=== PATIENT | male | born 1950 | race Caucasian/White ===

== ENCOUNTER 2017-02-01 22:47 | Emergency (ER) | payer BC, OTHER ==
[2017-02-02] MEDS ORDERED: IOPAMIDOL-300 100 ML VIAL IVP ONE (01:19)
[2017-02-02] MEDS ORDERED: MORPHINE 2 MG/ML SYRINGE IVP STA (05:08)
[2017-02-02] MEDS ORDERED: MORPHINE 2 MG/ML SYRINGE ONE ×2 (05:13)
== END 2017-02-02 05:50 | disposition short-term general hospital (02) ==
DX: C25.0 Malignant neoplasm of head of pancreas (principal); C78.6 Secondary malignant neoplasm of retroperitoneum and peritoneum; K83.1 Obstruction of bile duct; I49.1 Atrial premature depolarization; I48.91 Unspecified atrial fibrillation; Z79.899 Other long term (current) drug therapy; Z79.82 Long term (current) use of aspirin
CPT/HCPCS: 36415; 74177; 80053; 81003; 83690; 83880; 84484; 85025; 93005; 93010; 96374; 99284; Q9967

== ENCOUNTER 2017-02-09 14:54 | Outpatient (CLI) | payer OTHER | END 2017-02-09 14:55 | disposition home or self-care (01) | DX: C25.0 Malignant neoplasm of head of pancreas (principal) ==

== ENCOUNTER 2017-02-15 20:45 | Outpatient (CLI) | payer OTHER | END 2017-02-15 20:46 | disposition home or self-care (01) | DX: C25.0 Malignant neoplasm of head of pancreas (principal) ==

== ENCOUNTER 2017-03-02 11:50 | Outpatient (CLI) | payer OTHER | END 2017-03-02 11:51 | disposition home or self-care (01) | DX: C25.9 Malignant neoplasm of pancreas, unspecified (principal); L40.9 Psoriasis, unspecified ==

== ENCOUNTER 2017-03-06 06:19 | Observation (INO) | payer OTHER ==
[2017-03-06] MEDS ORDERED: CLINDAMYCIN 600 MG/50 ML 50 ML IV ONE (06:41)
[2017-03-06] MEDS ORDERED: LACTATED RINGERS 1,000 ML IV ONE ×3 (07:01→09:25)
[2017-03-06] MEDS ORDERED: PROPOFOL 200 MG/20 ML VIAL IVP ONE (07:45)
[2017-03-06] MEDS ORDERED: MIDAZOLAM 2 MG/2 ML VIAL IVP ONE (07:45)
[2017-03-06] MEDS ORDERED: ONDANSETRON 4 MG/2 ML VIAL IVP ONE (07:45)
[2017-03-06] MEDS ORDERED: DEXAMETHASONE 4 MG/ML VIAL IVP ONE (07:45)
[2017-03-06] MEDS ORDERED: LIDOCAINE-MPF 2% 5 ML VIAL IM ONE (07:45)
[2017-03-06] MEDS ORDERED: fentaNYL 100 MCG/2 ML VIAL IVP ONE (07:45)
[2017-03-06] MEDS ORDERED: ePHEDrine 50 MG/ML AMP IVP ONE (07:45)
[2017-03-06] MEDS ORDERED: LIDOCAINE MPF 1%-EPI 1:200000 30 ML VIAL SUBQ ONE ×3 (08:03)
[2017-03-06] MEDS ORDERED: BUPIVACAINE 0.5% PF 30 ML VIAL SUBQ ONE ×3 (08:03)
[2017-03-06] MEDS ORDERED: ONDANSETRON ODT 4 MG TABLET PO PRN (11:31)
[2017-03-06] MEDS ORDERED: SODIUM CHLORIDE FLUSH 0.9% 10 ML SYRINGE IVP PRN (11:32)
[2017-03-06] MEDS: SODIUM CHLORIDE FLUSH 0.9% 10 ML SYRINGE IVP SCH ×2 (12:15→22:12)
[2017-03-06] MEDS: FLECAINIDE 50 MG TABLET PO SCH ×2 (13:39→22:12)
[2017-03-06] MEDS: oxyCOD/ACETAMIN 5 MG/325 MG TABLET PO PRN (14:17)
[2017-03-07] MEDS: oxyCOD/ACETAMIN 5 MG/325 MG TABLET PO PRN (01:18)
[2017-03-07] MEDS: SODIUM CHLORIDE FLUSH 0.9% 10 ML SYRINGE IVP SCH (05:47)
[2017-03-07] MEDS: FLECAINIDE 50 MG TABLET PO SCH (05:47)
[2017-03-07] MEDS ORDERED: diltiaZEM CD 120 MG CAPSULE PO SCH (09:00)
== END 2017-03-07 10:44 | disposition home or self-care (01) ==
PROC: 02HV33Z Insertion of Infusion Device into Superior Vena Cava, Percutaneous Approach (ICD-10-PCS; principal; 2017-03-06 07:30)
DX: C25.0 Malignant neoplasm of head of pancreas (principal); J95.811 Postprocedural pneumothorax; Y83.8 Other surgical procedures as the cause of abnormal reaction of the patient, or of later complication, without mention of misadventure at the time of the procedure; Y92.234 Operating room of hospital as the place of occurrence of the external cause; I48.91 Unspecified atrial fibrillation; Z79.82 Long term (current) use of aspirin; K59.00 Constipation, unspecified
CPT/HCPCS: 36561; 71010; 71020; A9270; C1751; G0378; J7120

== ENCOUNTER 2017-04-09 12:43 | Emergency (ER) | payer OTHER ==
[2017-04-09 12:51] VITALS: BP 133/55
--- NOTE | 2017-04-09 13:03 | ED Physician Documentation ---
History of Present Illness - Stated complaint Stated Complaint: RT LE SWELLING - Chief complaint Chief Complaint: Ext Problem - History obtained from History obtained from: Patient - History of Present Illness Timing: Today Pain level max: 0 Pain level now: 0 Improved by: elevating legs Worsened by: [place] - Additonal information Additional information: Patient is a 66-year-old male with a history of metastatic pancreatic cancer who presents to the emergency department with swelling to the right lower extremity. No pain, no redness. No recent trauma. Concerned about potential DVT. Review of Systems Constitutional: denies: Fever Respiratory: denies: Dyspnea, Cough, Wheezing GI: denies: Abdominal Pain, Nausea, Vomiting Skin: denies: Rash Musculoskeletal: denies: Neck pain, Back pain Neurologic: denies: Headache PD PAST MEDICAL HISTORY - Past Medical History Past Medical History: Yes Cardiovascular: Atrial fibrillation Respiratory: None Endocrine/Autoimmune: None GI: None : None HEENT: None Psych: None Musculoskeletal: None Derm: None Other Past Medical History: pancreatic ca - Past Surgical History Past Surgical History: Yes General: Other Cardiovascular: Other HEENT: Tonsil/Adenoidectomy - Present Medications Home Medications: Ambulatory Orders Medication Instructions Recorded Confirmed Aspirin [Barbara Chewable Aspirin] 81 mg PO DAILY 12/31/15 03/24/17 diltiaZEM CD [Cardizem Cd] 120 mg PO DAILY 12/31/15 03/24/17 Ondansetron Odt [Zofran Odt] 4 mg PO Q4H PRN 02/25/17 03/24/17 Flecainide Acetate 100 mg PO TID 03/06/17 03/24/17 Polyethylene Glycol 3350 [Miralax] 17 gm PO DAILY PRN 03/06/17 03/24/17 Prochlorperazine Maleate 10 mg PO Q6H PRN 03/06/17 03/24/17 [Compazine] oxyCODONE [Roxicodone] 5 mg PO Q4H PRN 03/06/17 03/24/17 - Allergies Allergies/Adverse Reactions: Allergies Allergy/AdvReac Type Severity Reaction Status Date / Time No Known Drug Allergies Allergy Verified 12/31/15 16:26 - Social History Does the pt smoke?: No Smoking Status: Never smoker Does the pt drink ETOH?: Yes Does the pt have substance abuse?: No - Immunizations Immunizations are current?: Yes PD ED PE NORMAL - Vitals Vital signs reviewed: Yes - General General: Alert and oriented X 3, No acute distress, Well developed/nourished - Cardiac Cardiac: RRR - Respiratory Respiratory: No respiratory distress, Clear bilaterally - Derm Derm: Warm and dry, No rash - Extremities Extremities: Other (1+ B LE edema, no calf tenderness, negative Lisker and Ara 's signs. Normal skin color and temperature. ) - Neuro Neuro: Alert and oriented X 3 - Psych Psych: Normal mood, Normal affect Results - Vitals Vitals: Vital Signs - 24 hr 04/09/17 12:49 Temperature 36.3 C L Heart Rate 87 Respiratory 18 Rate Blood Pressure 133/55 H O2 Saturation 98 Oxygen O2 Source Room air PD MEDICAL DECISION MAKING - ED course Complexity details: considered differential, d/w patient ED course: Patient is a 66-year-old male who presents to the emergency department with what was thought to be right lower extremity swelling, but the bilateral lower extremities are actually even. Both are very mildly swollen. There is no calf tenderness bilaterally. Negative Ara and Lisker signs. Normal skin. No warmth. We did discuss a ultrasound to rule out any potential occult DVT, but given lack of symptoms on exam, will hold this at this time. He does usually wear compression stockings, but did not wear them yesterday when he walked several miles along the beach. Appears to be mostly dependent edema and is decreasing with elevation of the legs. Patient counseled regarding signs and symptoms for which I believe and urgent re-evaluation would be necessary. Patient with good understanding of and agreement to plan and is comfortable going home at this time This document was made in part using voice recognition software. While efforts are made to proofread this document, sound alike and grammatical errors may occur. Departure - Departure Disposition: 01 Home, Self Care Clinical Impression: Peripheral edema Condition: Good Instructions: ED Edema Legs Bilateral Follow-Up: Deanna Simon MD [Primary Care Provider] - As Needed Comments: Wearing your compression socks will help with the swelling. Return if you notice swelling to one leg, redness or pain.
== END 2017-04-09 13:07 | disposition home or self-care (01) ==
LOC: ED 12:43
DX: R60.0 Localized edema (principal); C25.9 Malignant neoplasm of pancreas, unspecified; C79.9 Secondary malignant neoplasm of unspecified site; I48.91 Unspecified atrial fibrillation; Z79.82 Long term (current) use of aspirin
CPT/HCPCS: 99282; 99283

== ENCOUNTER 2017-04-21 08:00 | Outpatient (CLI) | payer OTHER | END 2017-04-21 08:01 | disposition home or self-care (01) | LOC: LAB.R 08:00 | PROVIDERS: ATTEND Naturopath | DX: R70.0 Elevated erythrocyte sedimentation rate (principal) | CPT/HCPCS: 82525; 84630; 85651; 86140 ==

== ENCOUNTER 2017-06-04 08:00 | Outpatient (CLI) | payer OTHER ==
[2017-06-06 16:21] LABS: COPPER 135 mcg/dL (70-175)
== END 2017-06-04 08:01 ==
LOC: LAB.R 08:00
PROVIDERS: ATTEND Naturopath
DX: E55.9 Vitamin D deficiency, unspecified (principal); R70.0 Elevated erythrocyte sedimentation rate; R79.82 Elevated C-reactive protein (CRP); R79.0 Abnormal level of blood mineral
CPT/HCPCS: 82306; 82525; 84630; 85651; 86141

== ENCOUNTER 2017-07-07 17:06 | Outpatient (CLI) | payer OTHER | END 2017-07-07 17:07 | disposition home or self-care (01) | LOC: LAB.R 17:06 | PROVIDERS: ATTEND Naturopath | DX: E55.9 Vitamin D deficiency, unspecified (principal); R70.0 Elevated erythrocyte sedimentation rate; R79.82 Elevated C-reactive protein (CRP); R79.0 Abnormal level of blood mineral | CPT/HCPCS: 82306; 82525; 84630; 85651; 86141 ==

== ENCOUNTER 2017-09-07 20:07 | Outpatient (CLI) | payer MEDICARE, OTHER ==
--- NOTE | 2017-09-08 09:13 | Ultrasound Report ---
SCROTAL DUPLEX: 09/07/2017 CLINICAL INDICATION: Edema. COMPARISON: 09/05/2015 TECHNIQUE: Real-time sonographic vascular imaging was performed by the marketing reporting analyst through the scrot um utilizing both color-flow and Doppler spectral analysis. [employer] sales representative static images we re saved for review. FINDINGS: The right testicle measures 4.0 x 2.4 x 2.4 cm, and the left testicle measures 4.0 x 2.4 x 2.5 cm. Both testicles demonstrate normal flow and echotexture. Bilateral epididymal cysts are pre sent. Small bilateral hydroceles are present. Subcutaneous edema is present bilaterally. IMPRESSION: NEW SUBCUTANEOUS EDEMA. NORMAL TESTES. JOB #: [id number] EXT JOB #:[id number]
--- NOTE | 2017-09-08 09:36 | Ultrasound Report ---
COMPLETE ABDOMINAL ULTRASOUND: 09/07/2017 CLINICAL INDICATION: Bloating, edema. COMPARISON: CT 05/21/2017. TECHNIQUE: Real-time scanning was performed with sales representative girls' apparel static images obtained. FINDINGS: The liver measures 13.6 cm. No focal parenchymal lesion or intrahepatic biliary dilatatio n is seen. The common bile duct is difficult to visualize, likely due to biliary stent. The gallbla dder is not dilated. The pancreas and the majority of the biliary tree is obscured by bowel gas. Th e spleen is mildly increased in size, measuring 14.6 cm. No focal splenic lesion is appreciated. Th e right kidney measures 11.3 cm, and demonstrates a 1.3 cm cyst. The left kidney measures 11.6 cm. No hydronephrosis or solid renal lesion is seen. The abdominal aorta is normal in caliber. The infe rior vena cava is unremarkable. There has been slight increase in volume of ascites present, with a small amount of perihepatic and perisplenic ascites seen, and trace ascites in the pelvis. IMPRESSION: SMALL VOLUME OF ASCITES PRESENT, SLIGHTLY INCREASED FROM PREVIOUS CT. SUBOPTIMAL VISUAL IZATION OF THE PANCREAS AND COMMON BILE DUCT, DUE TO BOWEL GAS, BUT NO INTRAHEPATIC BILIARY DILATATIO N IS APPRECIATED. JOB #: [id number] EXT JOB #:[id number]
== END 2017-09-07 20:08 | disposition home or self-care (01) ==
LOC: DI 20:07
PROVIDERS: ATTEND Family Medicine
DX: N50.89 Other specified disorders of the male genital organs (principal); R14.0 Abdominal distension (gaseous); R18.8 Other ascites
CPT/HCPCS: 76700; 76870; 93975

== ENCOUNTER 2017-09-10 11:33 | Emergency (ER) | payer MEDICARE, OTHER ==
[2017-09-10] MEDS ORDERED: SODIUM CHLORIDE FLUSH 0.9% 10 ML SYRINGE IVP ONE ×3 (11:51→15:11)
[2017-09-10 12:28] LABS: BASOPHILS % (AUTO) 0.3 %; LYMPHOCYTES # (AUTO) 0.3 10^3/uL (1.5-3.5); LYMPHOCYTES % (AUTO) 3.2 %; MEAN CORPUSCULAR HEMOGLOBIN 28.7 pg (27.0-31.0); MEAN CORPUSCULAR HGB CONC 32.6 g/dL (32.0-36.0); MEAN CORPUSCULAR VOLUME 88.1 fL (80.0-94.0); MEAN PLATELET VOLUME 9.4 fL (7.4-11.4); MONOCYTES # (AUTO) 0.5 10^3/uL (0.0-1.0); MONOCYTES % (AUTO) 5.3 %; NEUTROPHILS # (AUTO) 9.3 10^3/uL (1.5-6.6); NEUTROPHILS % (AUTO) 91.2 %; RED BLOOD COUNT 1.82 10^6/uL (4.70-6.10); RED CELL DISTRIBUTION WIDTH 19.1 % (12.0-15.0); UNCORRECTED WHITE BLOOD COUNT 10.2 x10^3/uL; WHITE BLOOD COUNT 10.2 x10^3/uL (4.8-10.8)
[2017-09-10 12:32] LABS: HCT - HEMATOCRIT 16.1 % (42.0-52.0); HGB - HEMOGLOBIN 5.2 g/dL (14.0-18.0)
[2017-09-10 12:35] LABS: ALBUMIN/GLOBULIN RATIO 1.1 (1.0-2.2); BILIRUBIN,TOTAL 0.8 mg/dL (0.2-1.0); CALCIUM 8.4 mg/dL (8.5-10.3); CREATININE 0.8 mg/dL (0.6-1.2); MAGNESIUM 2.9 mg/dL (1.7-2.8); POTASSIUM 4.5 mmol/L (3.5-5.0); TOTAL PROTEIN 4.8 g/dL (6.7-8.2)
--- NOTE | 2017-09-10 12:40 | ED Physician Documentation ---
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 He has had issues with severe anemia and actually got 5 units of transfusion last week. He also has a biliary stent in place. He is here today with sudden onset dyspnea that started within the last couple of hours, he has had an increased cough but no fevers. There is some chest pressure that is present with exertion, but not at rest. He has anasarca which has been ongoing for the last week or so. He has a history of atrial fibrillation and is maintained on flecainide and diltiazem, he is not anticoagulated. He has no asymmetric pedal edema, but he certainly does have pedal edema but without calf pain. No history of DVT or PE.) Review of Systems Ten Systems: 10 systems reviewed and negative Constitutional: reports: Fatigue (Mild). denies: Fever, Chills Nose: reports: Rhinorrhea / runny nose. denies: Congestion Cardiac: reports: Chest pain / pressure, Pedal edema. denies: Palpitations, Calf pain Respiratory: reports: Dyspnea, Cough GI: reports: Abdominal Swelling (Not increased over the last week). denies: Abdominal Pain, Nausea, Vomiting, Constipation, Diarrhea Skin: denies: Rash, Lesions Musculoskeletal: denies: Neck pain, Back pain PD PAST MEDICAL HISTORY - Past Medical History Past Medical History: Yes Cardiovascular: Atrial fibrillation Respiratory: None Endocrine/Autoimmune: None GI: None : None HEENT: None Psych: None Musculoskeletal: None Derm: None Other Past Medical History: pancreatic CA diagnosed January of 2017 - Past Surgical History Past Surgical History: Yes General: Other Cardiovascular: Other HEENT: Tonsil/Adenoidectomy - Present Medications Home Medications: Ambulatory Orders Medication Instructions Recorded Confirmed Aspirin [Barbara Chewable Aspirin] 81 mg PO DAILY 12/31/15 09/08/17 diltiaZEM CD [Cardizem Cd] 120 mg PO DAILY 12/31/15 09/08/17 Ondansetron Odt [Zofran Odt] 4 mg PO Q4H PRN 02/25/17 09/08/17 Flecainide Acetate 100 mg PO TID 03/06/17 09/08/17 Polyethylene Glycol 3350 [Miralax] 17 gm PO DAILY PRN 03/06/17 09/08/17 Prochlorperazine Maleate 10 mg PO Q6H PRN 03/06/17 09/08/17 [Compazine] oxyCODONE [Roxicodone] 5 mg PO Q4H PRN 03/06/17 09/08/17 Gabapentin [Neurontin] 1 tab ORAL QPM 06/09/17 09/08/17 Loratadine [Claritin] 10 mg PO DAILY 07/07/17 09/08/17 Amoxicillin/Potassium Clav 1 tab PO BID 08/18/17 09/08/17 [Amox-Clav 875-125 mg Tablet] Rivaroxaban [Xarelto] 15 mg PO PRN PRN 08/18/17 09/08/17 - Allergies Allergies/Adverse Reactions: Allergies Allergy/AdvReac Type Severity Reaction Status Date / Time No Known Drug Allergies Allergy Verified 12/31/15 16:26 - Social History Does the pt smoke?: No Smoking Status: Never smoker Does the pt drink ETOH?: Yes Does the pt have substance abuse?: No - Family History Family history: reports: Non contributory - Immunizations Immunizations are current?: Yes PD ED PE NORMAL - Vitals Vital signs reviewed: Yes - General General: Alert and oriented X 3, Other (Pale, winded when he gets talking.) - HEENT HEENT: PERRL, EOMI - Neck Neck: Supple, no meningeal sign, No bony TTP - Cardiac Cardiac: RRR, No murmur - Respiratory Respiratory: No respiratory distress, Clear bilaterally - Abdomen Abdomen: Other (Distended with ascites, not tense, but close. Nontender.) - Rectal Rectal: Other (Not much stool in the vault, what is there is dark but not obviously melanic, but very guaiac positive.) - Back Back: No CVA TTP, No spinal TTP - Derm Derm: Normal color, Warm and dry - Extremities Extremities: Other (He has anasarca of the legs and a little bit to the arms as well.) - Neuro Neuro: Alert and oriented X 3, Normal speech - Psych Psych: Normal mood, Normal affect Results - Vitals Vitals: Vital Signs - 24 hr 09/10/17 09/10/17 09/10/17 11:36 12:20 13:50 Temperature 35.0 C L 36.8 C Heart Rate 85 76 81 Respiratory 26 H 18 20 Rate Blood Pressure 99/63 115/77 126/72 O2 Saturation 100 100 100 09/10/17 09/10/17 14:33 15:33 Temperature Heart Rate 75 75 Respiratory 18 18 Rate Blood Pressure 131/64 H 136/72 H O2 Saturation 99 100 Oxygen O2 Source Nasal cannula - EKG (time done) 1144 Rate: Rate (enter#) (80) Rhythm: NSR [place]: Normal Intervals: Wide QRS (IVCD) Ischemia: Non specific changes (Kind of flat T waves throughout without ST elevation or depression.) Computer interpretation: Agree with computer - Labs Labs: Laboratory Tests 09/10/17 09/10/17 09/10/17 11:50 11:50 11:50 WBC 10.2 RBC 1.82 L Hgb 5.2 L* Hct 16.1 L* MCV 88.1 MCH 28.7 MCHC 32.6 RDW 19.1 H Plt Count 112 L MPV 9.4 Neut # 9.3 H Lymph # 0.3 L [place] # 0.5 Eos # 0.0 Baso # 0.0 Absolute Nucleated RBC 0.01 Nucleated RBC % 0.0 Sodium 134 L Potassium 4.5 Chloride 103 Carbon Dioxide 23 Anion Gap 8.0 BUN 43 H Creatinine 0.8 Estimated GFR (MDRD) 96 Glucose 167 H Calcium 8.4 L Magnesium 2.9 H Total Bilirubin 0.8 AST 48 H ALT 16 Alkaline Phosphatase 100 Troponin I < 0.04 B-Natriuretic Peptide Total Protein 4.8 L Albumin 2.5 L Globulin 2.3 Albumin/Globulin Ratio 1.1 Lipase 23 Blood Type Antibody Screen Crossmatch IS Only 09/10/17 09/10/17 11:50 11:50 WBC RBC Hgb Hct MCV MCH MCHC RDW Plt Count MPV Neut # Lymph # [place] # Eos # Baso # Absolute Nucleated RBC Nucleated RBC % Sodium Potassium Chloride Carbon Dioxide Anion Gap BUN Creatinine Estimated GFR (MDRD) Glucose Calcium Magnesium Total Bilirubin AST ALT Alkaline Phosphatase Troponin I B-Natriuretic Peptide 135 H Total Protein Albumin Globulin Albumin/Globulin Ratio Lipase Blood Type A POSITIVE Antibody Screen NEGATIVE Crossmatch IS Only See Detail - Rads (name of study) CTA Chest and CT A/P Radiology: EMP read contemporaneously (61-year-old gentleman with hypotension and pneumonia, administered Rocephin and Zithromax after blood cultures. Spoke with Dr. Lu for admission at 2:05 PM.) PD MEDICAL DECISION MAKING - ED course ED course: This is a 66-year-old gentleman with stage IV pancreatic cancer undergoing treatment with acute dyspnea and issues with anemia lately, his H&H have been dropping faster than expected given recent transfusions, totaling 5 units last week. He is again profoundly anemic. He is guaiac positive and admits to dark stools intermittently recently. CT of the abdomen and pelvis was notable for varices. Case was discussed at that point with Dr. Patel, the on-call surgeon who felt that if this was going to be treated he would need to be transferred to a tertiary facility given the varices as he will need GI consultation. He was administered initially 1 bolus of Protonix, 40 mg, this was repeated on identification of the varices and he was also started on an octreotide drip after a 50 mcg bolus. He was administered Rocephin 1 g IV for GI bleeding. Blood was readied, his central line was accessed and We also obtained peripheral access. I discussed the diagnosis of abdominal varices with GI bleeding with the patient and his . We did discuss the potential of hospice which he is not ready for. [facility] was called for potential transfer is that were is where he has had his prior GI work done at approximately 2:[address] Ley GI at [facility] at 1540. Agrees to see in consultation, defers to the hospitalist there for admit, the transfer center will call me back with the hospitalist on the line. Accepted by Dr. Rodriguez to [facility] at 4 PM. - Critical Care Time(min): 45 Time Includes: Direct patient care, Review records, Reassess patient, Document care, Coordinate care, Medical consult, Family consult for tx dec Data interpretation: Labs Procedures included in critical care time: Peripheral IV Departure - Departure Disposition: 02 Transfer Acute Care Hosp Clinical Impression: Peripheral edema, Intra-abdominal varices Pancreatic cancer Qualifiers: Pancreatic malignancy location: unspecified Qualified Code(s): C25.9 - Malignant neoplasm of pancreas, unspecified Anemia Qualifiers: Anemia type: iron deficiency Iron deficiency anemia type: chronic blood loss Qualified Code(s): D50.0 - Iron deficiency anemia secondary to blood loss ( chronic) Gastrointestinal hemorrhage Qualifiers: GI bleed type/associated pathology: unspecified gastrointestinal hemorrhage type Qualified Code(s): K92.2 - Gastrointestinal hemorrhage, unspecified Dyspnea Qualifiers: Dyspnea type: dyspnea on exertion Qualified Code(s): R06.09 - Other forms of dyspnea Condition: Serious
[2017-09-10] MEDS ORDERED: IOPAMIDOL-300 100 ML VIAL ONE (12:44)
[2017-09-10] MEDS ORDERED: IOPAMIDOL-300 100 ML VIAL IVP ONE (13:00)
--- NOTE | 2017-09-10 13:27 | CT Preliminary Report ---
Exam: CT ABDOMEN/PELVIS W/ IMPRESSION: 1. Moderate volume of ascites fluid. 2. Pancreatic head mass with portal confluence obstruction and multiple abdominal varices. 3. Proximal small bowel dilation favoring a pattern of ileus over obstruction. [facility] SITE ID: [id number]
[2017-09-10] MEDS ORDERED: PANTOPRAZOLE 40 MG VIAL IVP STA ×2 (13:28→14:00)
--- NOTE | 2017-09-10 13:29 | CT Report ---
EXAM: CT ABDOMEN AND PELVIS EXAM DATE: 09/10/2017 01:04 PM. CLINICAL HISTORY: IV only, increasing ascites. COMPARISONS: Noncontrast abdomen CT 02/03/2017. TECHNIQUE: Routine helical CT imaging was performed through the abdomen and pelvis. IV contrast: 100 cc Isovue-300 IV. Enteric contrast: No. Reconstructions: Coronal and sagittal. In accordance with CT protocol optimization, one or more of the following dose reduction techniques w ere utilized for this exam: automated exposure control, adjustment of mA and/or KV based on patient s ize, or use of iterative reconstructive technique. FINDINGS: Lung Bases: There is a trace left pleural effusion. Liver: There is pneumobilia within the liver. No focal liver masses visualized. The central portal ve ins are patent. Gallbladder/Bile Ducts: The gallbladder is contracted. Spleen: Normal. Pancreas: There is a heterogeneous soft tissue mass in the location of the body and head of the pancr eas. This mass makes broad contact with the superior mesenteric artery. This mass appears to obstruct or compress the extrahepatic portal vein and portal confluence. There are multiple surrounding vesse ls around this mass. The margins of the mass are poorly defined and measure approximately 7.3 x 4.4 x 6.5 cm. There is a biliary stent traversing through the level of the pancreas. Adrenal Glands: Normal in size. Kidneys: No hydronephrosis bilaterally. Peritoneal Cavity/Bowel: There is a moderate volume of ascites fluid within the upper and lower abdom en. There are edematous appearing loops of proximal jejunum in the upper abdomen. Small bowel loops a re dilated up to 4 cm in diameter without a well-defined transition zone. The appendix appears within normal limits. There is diffuse mesenteric fat edema. There are multiple abdominal varices. Pelvic Organs: Urinary bladder is unremarkable. Previous pelvic surgery noted. Vasculature: The abdominal aorta is normal in caliber. Bones: No significant abnormality. Other: None. IMPRESSION: 1. Moderate volume of ascites fluid. 2. Pancreatic head mass with portal confluence obstruction and multiple abdominal varices. 3. Proximal small bowel dilation favoring a pattern of ileus over obstruction. [facility] Referring Provider Line: [phone] SITE ID: [id number]
--- NOTE | 2017-09-10 13:32 | CT Preliminary Report ---
Exam: CT CHEST ANGIO (PE) IMPRESSION: 1. Negative for acute pulmonary embolism. 2. Trace left pleural effusion. 3. Basilar dependent atelectasis. [facility] SITE ID: [id number]
--- NOTE | 2017-09-10 13:35 | CT Report ---
EXAM: CT ANGIOGRAM CHEST EXAM DATE: 09/10/2017 01:04 PM. CLINICAL HISTORY: Dyspnea, pancreatic CA. COMPARISON: 05/21/2017. TECHNIQUE: Routine helical imaging was performed through the chest in the pulmonary arterial phase. I V Contrast: 100 cc Isovue-300 IV. Reconstructions: Coronal 3-D MIP reconstructions.Sagittal and coron al. In accordance with CT protocol optimization, one or more of the following dose reduction techniques w ere utilized for this exam: automated exposure control, adjustment of mA and/or KV based on patient s ize, or use of iterative reconstructive technique. FINDINGS: Pulmonary Arteries: Diagnostic quality: Adequate through the segmental arteries. Negative for acute pulmonary embolism. Main pulmonary artery is normal in size. Lungs/Pleura: There is a calcified granuloma in the superior segment of the right lower lobe. There i s a linear band of atelectasis in the lateral right lower lobe. No consolidative pneumonia. No centra l endobronchial obstructing lesion. There is a trace left pleural effusion. Mediastinum: There is a small hiatal hernia. The heart size is normal. No intracardiac thrombus. Ther e is a central line with tip in the superior vena cava. No mediastinal or hilar lymphadenopathy. Thoracic Aorta: No thoracic aortic aneurysm or dissection. Upper Abdomen: There is a moderate volume of ascites in the upper abdomen. There is a pancreatic head mass. Other: None. IMPRESSION: 1. Negative for acute pulmonary embolism. 2. Trace left pleural effusion. 3. Basilar dependent atelectasis. [facility] Referring Provider Line: [phone] SITE ID: [id number]
[2017-09-10] MEDS ORDERED: PANTOPRAZOLE 40 MG VIAL ONE ×2 (13:44→14:53)
[2017-09-10] MEDS ORDERED: PANTOPRAZOLE 80 MG in SODIUM CHLORIDE 0.9% 100ML 100 ML IV STA (14:00)
[2017-09-10] MEDS ORDERED: OCTREOTIDE 100 MCG/ML VIAL IV STA (14:00)
[2017-09-10] MEDS ORDERED: OCTREOTIDE 500 MCG in SODIUM CHLORIDE 0.9% 100ML 95 ML IV STA (14:00)
[2017-09-10] MEDS ORDERED: FLECAINIDE 50 MG TABLET PO STA (14:53)
[2017-09-10] MEDS ORDERED: FLECAINIDE 50 MG TABLET PO ONE (15:33)
[2017-09-10 20:11] VITALS: BP 124/72
== END 2017-09-10 20:08 | disposition short-term general hospital (02) ==
LOC: ED 11:33
DX: C25.0 Malignant neoplasm of head of pancreas (principal); C78.6 Secondary malignant neoplasm of retroperitoneum and peritoneum; D50.0 Iron deficiency anemia secondary to blood loss (chronic); K92.2 Gastrointestinal hemorrhage, unspecified; I86.8 Varicose veins of other specified sites; R18.8 Other ascites; R60.0 Localized edema; R06.09 Other forms of dyspnea; I48.91 Unspecified atrial fibrillation; Z79.82 Long term (current) use of aspirin
CPT/HCPCS: 36415; 36430; 71275; 74177; 80053; 83690; 83735; 83880; 84484; 85025; 86850; 86900; 86901; 86920; 93005; 93306; 96365; 96368; 96375; 96376; 99285; 99291; A9270; J2354; P9016; Q9967

== ENCOUNTER 2017-09-10 20:10 | Outpatient (CLI) | payer MEDICARE, OTHER | END 2017-09-10 20:11 | disposition short-term general hospital (02) | LOC: EMS 20:10 | PROVIDERS: ATTEND Surgery | DX: K92.2 Gastrointestinal hemorrhage, unspecified (principal) | CPT/HCPCS: A0425; A0426 ==

== ENCOUNTER 2017-09-15 14:30 | Outpatient (CLI) | payer MEDICARE, OTHER | END 2017-09-15 14:31 | disposition home or self-care (01) | LOC: LAB.R 14:30 | PROVIDERS: ATTEND Naturopath | DX: E55.9 Vitamin D deficiency, unspecified (principal); R70.0 Elevated erythrocyte sedimentation rate; R79.82 Elevated C-reactive protein (CRP); R79.0 Abnormal level of blood mineral | CPT/HCPCS: 82306; 82525; 84630; 85651; 86140 ==

== ENCOUNTER 2017-09-21 11:10 | Outpatient (CLI) | payer MEDICARE, OTHER | END 2017-09-21 11:11 | LOC: LAB.R 11:10 | PROVIDERS: ATTEND Naturopath | DX: E55.9 Vitamin D deficiency, unspecified (principal); R79.0 Abnormal level of blood mineral; R70.0 Elevated erythrocyte sedimentation rate; R79.82 Elevated C-reactive protein (CRP) | CPT/HCPCS: 82525; 84630 ==

== ENCOUNTER 2017-12-22 13:12 | Outpatient (CLI) | payer MEDICARE, OTHER | END 2017-12-22 13:13 | LOC: LAB.R 13:12 | PROVIDERS: ATTEND Naturopath | DX: E55.9 Vitamin D deficiency, unspecified (principal); R70.0 Elevated erythrocyte sedimentation rate; R79.82 Elevated C-reactive protein (CRP); R79.0 Abnormal level of blood mineral | CPT/HCPCS: 82306; 82525; 84630; 85651; 86141 ==

== ENCOUNTER 2018-01-17 11:33 | Emergency (ER) | payer MEDICARE, OTHER ==
[2018-01-17] MEDS ORDERED: SODIUM CHLORIDE 0.9% 1,000 ML IV ONE (12:03)
[2018-01-17] MEDS ORDERED: PANTOPRAZOLE 40 MG VIAL IVP STA (12:03)
[2018-01-17] MEDS ORDERED: cefTRIAXone 1 GM VIAL IVP STA (12:04)
[2018-01-17 12:16] LABS: INR 1.2 (0.8-1.2); PT - PROTHROMBIN TIME 13.4 secs (9.9-12.6)
[2018-01-17 12:18] LABS: ALBUMIN 2.6 g/dL (3.2-5.5); ALBUMIN/GLOBULIN RATIO 0.9 (1.0-2.2); BILIRUBIN,TOTAL 0.9 mg/dL (0.2-1.0); CALCIUM 8.7 mg/dL (8.5-10.3); CREATININE 0.7 mg/dL (0.6-1.2); TOTAL PROTEIN 5.4 g/dL (6.7-8.2)
[2018-01-17 12:21] LABS: EOSINOPHILS % (AUTO) 0.1 %; LYMPHOCYTES % (AUTO) 1.3 %; MEAN CORPUSCULAR HEMOGLOBIN 31.3 pg (27.0-31.0); MEAN CORPUSCULAR HGB CONC 32.6 g/dL (32.0-36.0); MEAN CORPUSCULAR VOLUME 96.1 fL (80.0-94.0); MEAN PLATELET VOLUME 8.8 fL (7.4-11.4); NEUTROPHILS % (AUTO) 97.6 %; PLT - PLATELET COUNT 124 10^3/uL (130-450); RED BLOOD COUNT 2.15 10^6/uL (4.70-6.10); RED CELL DISTRIBUTION WIDTH 20.8 % (12.0-15.0)
[2018-01-17 12:27] LABS: WHITE BLOOD COUNT 52.4 x10^3/uL (4.8-10.8)
[2018-01-17 12:28] LABS: ABNORMAL LYMPHS % (MANUAL) 0 %; HGB - HEMOGLOBIN 6.7 g/dL (14.0-18.0)
[2018-01-17 12:40] LABS: BAND NEUTROPHILS % (MANUAL) 26 %; EOSINOPHILS # (MANUAL) 0.5 10^3/uL (0-0.7); LYMPHOCYTES % (MANUAL) 2 %; METAMYELOCYTES % (MANUAL) 1 %; MONOCYTES # (MANUAL) 0.5 10^3/uL (0.0-1.0); MYELOCYTES % (MANUAL) 1 %; NEUTROPHILS # (MANUAL) 49.3 10^3/uL (1.5-6.6); NEUTROPHILS % (MANUAL) 68 %
[2018-01-17 12:42] LABS: DIFFERENTIAL COMMENT MANUAL DIFFERENTIAL; PLATELET ESTIMATE, MANUAL DECREASED (<130,000) (NORMAL); PLATELET MORPHOLOGY NORMAL APPEARANCE (NORMAL)
--- NOTE | 2018-01-17 12:45 | ED Physician Documentation ---
History of Present Illness - Stated complaint Stated Complaint: BLACK STOOL - Chief complaint Chief Complaint: General - History obtained from History obtained from: Patient, Family - History of Present Illness Timing: How many days ago (2) Pain level max: 0 Pain level now: 0 Improved by: nothing Worsened by: nothing - Additonal information Additional information: Patient is a 67-year-old gentleman who has a history of metastatic pancreatic cancer, esophageal and gastric varices as well as gastric ulcers. He started having dark tarry stools on Thursday, have continued throughout the weekend. Came here for evaluation today as he is feeling weak. He sees GI and oncology at [facility] in [place]. He recently received a Neulasta shot as well. Denies any fevers. Review of Systems Ten Systems: 10 systems reviewed and negative Constitutional: denies: Fever, Chills Ears: denies: Ear pain Nose: denies: Rhinorrhea / runny nose, Congestion Throat: denies: Sore throat Cardiac: denies: Chest pain / pressure Respiratory: denies: Cough, Wheezing GI: reports: Bloody / black stool. denies: Abdominal Pain, Nausea, Vomiting, Diarrhea : denies: Dysuria Skin: denies: Rash Musculoskeletal: denies: Neck pain, Back pain Neurologic: denies: Headache PD PAST MEDICAL HISTORY - Past Medical History Cardiovascular: Atrial fibrillation Respiratory: None Endocrine/Autoimmune: None GI: None : None HEENT: None Psych: None Musculoskeletal: None Derm: None - Past Surgical History Past Surgical History: Yes General: Other Cardiovascular: Other HEENT: Tonsil/Adenoidectomy - Present Medications Home Medications: Ambulatory Orders Medication Instructions Recorded Confirmed diltiaZEM CD [Cardizem Cd] 120 mg PO DAILY 12/31/15 01/17/18 Ondansetron Odt [Zofran Odt] 4 mg PO Q4H PRN 02/25/17 01/17/18 Flecainide Acetate 100 mg PO TID 03/06/17 01/17/18 Polyethylene Glycol 3350 [Miralax] 17 gm PO DAILY PRN 03/06/17 01/17/18 Prochlorperazine Maleate 10 mg PO Q6H PRN 03/06/17 01/17/18 [Compazine] oxyCODONE [Roxicodone] 5 mg PO Q4H PRN 03/06/17 01/17/18 Gabapentin [Neurontin] 1 tab ORAL QPM 06/09/17 01/17/18 Loratadine [Claritin] 10 mg PO DAILY 07/07/17 01/17/18 Bisacodyl [Dulcolax] 10 mg PO DAILY 09/15/17 01/17/18 Omeprazole 40 mg PO BID 09/15/17 01/17/18 Sucralfate [Carafate] 100 mg PO Q8H 09/15/17 01/17/18 raNITIdine [Zantac] 150 mg PO DAILY 09/15/17 01/17/18 - Allergies Allergies/Adverse Reactions: Allergies Allergy/AdvReac Type Severity Reaction Status Date / Time No Known Drug Allergies Allergy Verified 12/31/15 16:26 - Social History Does the pt smoke?: No Smoking Status: Never smoker Does the pt drink ETOH?: Yes Does the pt have substance abuse?: No - Immunizations Immunizations are current?: Yes PD ED PE NORMAL - Vitals Vital signs reviewed: Yes - General General: Alert and oriented X 3, No acute distress - HEENT HEENT: PERRL, Moist mucous membranes - Neck Neck: Supple, no meningeal sign - Cardiac Cardiac: RRR - Respiratory Respiratory: No respiratory distress, Clear bilaterally - Abdomen Abdomen: Soft, Non tender, Non distended - Derm Derm: Warm and dry - Neuro Neuro: Alert and oriented X 3 Results - Vitals Vitals: Vital Signs - 24 hr 01/17/18 11:36 Temperature 36.5 C Heart Rate 74 Respiratory 14 Rate Blood Pressure 133/67 H O2 Saturation 99 Oxygen O2 Source Room air - Labs Labs: Laboratory Tests 01/17/18 01/17/18 01/17/18 11:55 11:55 11:55 WBC 52.4 H* RBC 2.15 L Hgb 6.7 L* Hct 20.6 L MCV 96.1 H MCH 31.3 H MCHC 32.6 RDW 20.8 H Plt Count 124 L MPV 8.8 Neut # Not Reportable Lymph # Not Reportable [place] # Not Reportable Eos # Not Reportable Baso # Not Reportable Absolute Nucleated RBC Not Reportable Total Counted 100 Band Neuts % (Manual) 26 H Abnorm Lymph % (Manual) 0 Metamyelocytes % 1 H Myelocytes % 1 H Nucleated RBC % Not Reportable Neutrophils # (Manual) 49.3 H Lymphocytes # (Manual) 1.0 L Monocytes # (Manual) 0.5 Eosinophils # (Manual) 0.5 Basophils # (Manual) 0.0 Differential Comment MANUAL DIFFERENTIAL Platelet Estimate DECREASED (<130,000) Platelet Morphology NORMAL APPEARANCE RBC Morph Micro Appear 3+ HYPOCHROMASIA PT 13.4 H INR 1.2 APTT 34.3 H Sodium 133 L Potassium 3.9 Chloride 104 Carbon Dioxide 24 Anion Gap 5.0 L BUN 33 H Creatinine 0.7 Estimated GFR (MDRD) 112 Glucose 102 H Calcium 8.7 Total Bilirubin 0.9 AST 28 ALT 12 Alkaline Phosphatase 175 H Total Protein 5.4 L Albumin 2.6 L Globulin 2.8 Albumin/Globulin Ratio 0.9 L Lipase 12 L PD MEDICAL DECISION MAKING - ED course Complexity details: reviewed old records, reviewed results, re-evaluated patient , considered differential, d/w patient, d/w family, d/w provider contracting consultant (1300 - Dr. Macario ([facility]) graciously accepts in transfer. ) ED course: Patient is a 67-year-old gentleman with a history of metastatic pancreatic cancer. Has GI bleeding, likely variceal. Given Protonix. Given Rocephin. Blood transfusion started. Hemoglobin is dropped from 10-6. Also given IV fluids. Has a port in place and this was accessed. 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 Has GI (Felicity) and oncology (Teofilo) specialists already at [facility] in [place], therefore I contacted their ICU doctor, Dr. Macario, who graciously accepts in transfer. Patient transferred to [facility] in [place]. This document was made in part using voice recognition software. While efforts are made to proofread this document, sound alike and grammatical errors may occur. Departure - Departure Disposition: 02 Transfer Acute Care Hosp Clinical Impression: Intra-abdominal varices Gastrointestinal hemorrhage Qualifiers: GI bleed type/associated pathology: unspecified gastrointestinal hemorrhage type Qualified Code(s): K92.2 - Gastrointestinal hemorrhage, unspecified Pancreatic cancer Qualifiers: Pancreatic malignancy location: unspecified Qualified Code(s): C25.9 - Malignant neoplasm of pancreas, unspecified Anemia Qualifiers: Anemia type: unspecified type Qualified Code(s): D64.9 - Anemia, unspecified Leukocytosis Qualifiers: Leukocytosis type: unspecified Qualified Code(s): D72.829 - Elevated white blood cell count, unspecified Condition: Stable
[2018-01-17 13:30] VITALS: BP 127/71
== END 2018-01-17 15:07 | disposition short-term general hospital (02) ==
LOC: ED 11:33
DX: K92.2 Gastrointestinal hemorrhage, unspecified (principal); C78.89 Secondary malignant neoplasm of other digestive organs; D64.9 Anemia, unspecified; I85.00 Esophageal varices without bleeding; D72.829 Elevated white blood cell count, unspecified; I86.4 Gastric varices; Z87.11 Personal history of peptic ulcer disease; I48.91 Unspecified atrial fibrillation
CPT/HCPCS: 36430; 80053; 83690; 85025; 85610; 85730; 86850; 86900; 86901; 86920; 96361; 96374; 99284; 99285; P9016

== ENCOUNTER 2018-01-17 14:07 | Outpatient (CLI) | payer MEDICARE, OTHER | END 2018-01-17 14:08 | disposition short-term general hospital (02) | LOC: EMS 14:07 | PROVIDERS: ATTEND Surgery | DX: K92.2 Gastrointestinal hemorrhage, unspecified (principal) | CPT/HCPCS: A0170; A0425; A0427 ==

== ENCOUNTER 2018-04-21 17:02 | Outpatient (CLI) | payer MEDICARE, OTHER ==
[2018-04-26 21:42] LABS: COPPER 102 mcg/dL (70-175)
[2018-04-27 20:38] LABS: ZINC, PLASMA 66 mcg/dL (60-130)
== END 2018-04-21 17:03 | disposition home or self-care (01) ==
LOC: LAB 17:02
PROVIDERS: ATTEND Naturopath
DX: E55.9 Vitamin D deficiency, unspecified (principal); R70.0 Elevated erythrocyte sedimentation rate; R79.82 Elevated C-reactive protein (CRP); R79.0 Abnormal level of blood mineral
CPT/HCPCS: 36415; 82306; 82525; 84630; 85651; 86141

== ENCOUNTER 2018-05-31 21:10 | Outpatient (CLI) | payer MEDICARE, OTHER ==
[2018-05-31 21:55] LABS: CRP HIGH SENSITIVITY 3.6 mg/L
[2018-06-03 23:21] LABS: ZINC, PLASMA 68 mcg/dL (60-130)
[2018-06-07 11:12] LABS: COPPER 128 mcg/dL (70-175)
== END 2018-05-31 21:11 | disposition home or self-care (01) ==
LOC: LAB 21:10
PROVIDERS: ATTEND Naturopath
DX: R70.0 Elevated erythrocyte sedimentation rate (principal); R79.82 Elevated C-reactive protein (CRP); D64.81 Anemia due to antineoplastic chemotherapy; R79.0 Abnormal level of blood mineral
CPT/HCPCS: 36415; 82306; 82525; 82728; 83540; 84466; 84630; 85651; 86141

== ENCOUNTER → 2018-07-07 | Outpatient (CLI) | payer MEDICARE, OTHER ==
[2018-07-13 11:56] LABS: COPPER 160 mcg/dL (70-175)
[2018-07-13 22:46] LABS: ZINC, PLASMA 53 mcg/dL (60-130)
== END ==
LOC: LAB.R 08:00
PROVIDERS: ATTEND Naturopath
DX: R79.0 Abnormal level of blood mineral (principal); R70.0 Elevated erythrocyte sedimentation rate; R97.20 Elevated prostate specific antigen [PSA]; I10 Essential (primary) hypertension; E78.5 Hyperlipidemia, unspecified
CPT/HCPCS: 82525; 84630; 85651

== ENCOUNTER 2018-07-26 09:03 | Outpatient (CLI) | payer MEDICARE, OTHER ==
[2018-07-26 09:33] LABS: BASOPHILS % (AUTO) 0.4 %; EOSINOPHILS # (AUTO) 0.1 10^3/uL (0.0-0.7); EOSINOPHILS % (AUTO) 1.2 %; HGB - HEMOGLOBIN 10.1 g/dL (14.0-18.0); LYMPHOCYTES # (AUTO) 0.5 10^3/uL (1.5-3.5); LYMPHOCYTES % (AUTO) 6.8 %; MEAN CORPUSCULAR HGB CONC 32.8 g/dL (32.0-36.0); MEAN CORPUSCULAR VOLUME 88.4 fL (80.0-94.0); MEAN PLATELET VOLUME 8.9 fL (7.4-11.4); NEUTROPHILS # (AUTO) 5.3 10^3/uL (1.5-6.6); NEUTROPHILS % (AUTO) 77.6 %; PLT - PLATELET COUNT 147 10^3/uL (130-450); RED BLOOD COUNT 3.49 10^6/uL (4.70-6.10); RED CELL DISTRIBUTION WIDTH 20.1 % (12.0-15.0); WHITE BLOOD COUNT 6.8 x10^3/uL (4.8-10.8)
== END 2018-07-26 09:04 | disposition home or self-care (01) ==
LOC: LAB 09:03
PROVIDERS: ATTEND Internal Medicine Hematology & Oncology
DX: C25.9 Malignant neoplasm of pancreas, unspecified (principal)
CPT/HCPCS: 36415; 85025

== ENCOUNTER 2018-08-12 17:22 | Emergency (ER) | payer MEDICARE, OTHER ==
--- NOTE | 2018-08-12 19:20 | ED Physician Documentation ---
History of Present Illness - Stated complaint Stated Complaint: BLOATING/CONSTIPATION - Chief complaint Chief Complaint: General - History obtained from History obtained from: Patient - History of Present Illness Timing: Other (Last good bowel movement was 4 days ago. He has had increasing lower abdominal pressure and back pressure for a couple of days despite trying magnesium citrate and a glycerin suppository. No vomiting or fevers.) Review of Systems Constitutional: denies: Fever, Chills GI: reports: Constipation. denies: Vomiting, Diarrhea, Hematemesis, Bloody / black stool PD PAST MEDICAL HISTORY - Past Medical History Cardiovascular: Atrial fibrillation Respiratory: None Endocrine/Autoimmune: None GI: None : None HEENT: None Psych: None Musculoskeletal: None Derm: None - Past Surgical History Past Surgical History: Yes General: Other Cardiovascular: Other HEENT: Tonsil/Adenoidectomy - Present Medications Home Medications: Ambulatory Orders Medication Instructions Recorded Confirmed diltiaZEM CD [Cardizem Cd] 120 mg PO DAILY 12/31/15 07/20/18 Flecainide Acetate 100 mg PO TID 03/06/17 07/20/18 Prochlorperazine Maleate 10 mg PO Q6H PRN 03/06/17 07/20/18 [Compazine] Gabapentin [Neurontin] 1 tab ORAL QPM 06/09/17 07/20/18 Loratadine [Claritin] 10 mg PO DAILY 07/07/17 07/20/18 Bisacodyl [Dulcolax] 10 mg PO DAILY 09/15/17 07/20/18 Omeprazole 40 mg PO BID 09/15/17 07/20/18 Nadolol 1 tab PO DAILY 02/02/18 07/20/18 Hyoscyamine [Levsin] 0.125 mg SL AC PRN #10 tablet 08/12/18 Lorazepam [Ativan] 1 mg PO TID PRN #7 tablet 08/12/18 - Allergies Allergies/Adverse Reactions: Allergies Allergy/AdvReac Type Severity Reaction Status Date / Time No Known Drug Allergies Allergy Verified 08/12/18 18:01 - Social History Does the pt smoke?: No Smoking Status: Never smoker Does the pt drink ETOH?: Yes Does the pt have substance abuse?: No - Immunizations Immunizations are current?: Yes PD ED PE NORMAL - Vitals Vital signs reviewed: Yes - General General: Alert and oriented X 3, No acute distress - Abdomen Abdomen: Normal bowel sounds, Soft, Non tender - Rectal Rectal: Other (No fecal impaction, enema placed during exam) - Derm Derm: Normal color, Warm and dry - Neuro Neuro: Alert and oriented X 3, Normal speech - Psych Psych: Normal mood, Normal affect Results - Vitals Vitals: Vital Signs - 24 hr 08/12/18 08/12/18 17:57 21:41 Temperature 36.5 C 37.0 C Heart Rate 48 L 60 Respiratory 18 22 Rate Blood Pressure 109/56 L 116/56 L O2 Saturation 96 100 Oxygen O2 Source Room air - Rads (name of study) CT A/P Radiology: EMP read contemporaneously (Slightly decreased size of pancreatic tumor. Sequela of ascites and biliary stent and varices. Fluid-filled colon.) PD MEDICAL DECISION MAKING - ED course ED course: This is a 67-year-old gentleman with history of pancreatic cancer presents with presumed constipation. He did have a small bowel movement after an enema and this was followed with magnesium citrate and Dulcolax but he had inordinate amount of cramping after that but his belly stayed benign. CT was as shown suggesting that potentially he was just having cramping from a fluid-filled colon from recent dietary changes due to upper endoscopy. He did feel better after Levsin and Ativan. - Sepsis Event Vital Signs: Vital Signs - 24 hr 08/12/18 08/12/18 17:57 21:41 Temperature 36.5 C 37.0 C Heart Rate 48 L 60 Respiratory 18 22 Rate Blood Pressure 109/56 L 116/56 L O2 Saturation 96 100 Oxygen O2 Source Room air Departure - Departure Disposition: 01 Home, Self Care Clinical Impression: Pancreatic cancer Qualifiers: Pancreatic malignancy location: unspecified Qualified Code(s): C25.9 - Malignant neoplasm of pancreas, unspecified Abdominal pain Qualifiers: Abdominal location: generalized Qualified Code(s): R10.84 - Generalized abdominal pain Condition: Good Record reviewed to determine appropriate education?: Yes Instructions: ED Abdominal Pain Unkn Cause Prescriptions: Hyoscyamine [Levsin] 0.125 mg SL AC PRN #10 tablet PRN Reason: Cramp Lorazepam [Ativan] 1 mg PO TID PRN #7 tablet PRN Reason: Anxiety Comments: Call your doctor to arrange a follow-up appointment, make the next available appointment. In the interim, return anytime if worse or if new symptoms develop.
[2018-08-12] MEDS ORDERED: MAGNESIUM CITRATE 296 ML BOTTLE PO STA (19:28)
[2018-08-12] MEDS ORDERED: BISACODYL 5 MG TABLET PO STA (19:28)
[2018-08-12] MEDS ORDERED: HYOSCYAMINE SL 0.125 MG TABLET SL STA ×2 (19:41→22:16)
[2018-08-12] MEDS ORDERED: LORazepam 2 MG/ML VIAL IVP STA (20:54)
[2018-08-12] MEDS ORDERED: IOPAMIDOL-300 100 ML VIAL IVP ONE (21:30)
--- NOTE | 2018-08-12 21:54 | CT Report ---
Reason: IV only, low abd pain Procedure Date: 08/12/2018 Accession Number: [id number] / [id number] Procedure: CT - Abdomen/Pelvis W/ CPT Code: FULL RESULT: EXAM: CT ABDOMEN AND PELVIS EXAM DATE: 08/12/2018 09:28 PM. CLINICAL HISTORY: IV only, low abdominal pain. COMPARISONS: Abdomen and pelvis with contrast 04/13/2018 9:59 AM. Abdomen and pelvis with contrast 12/10/2017. TECHNIQUE: Routine helical CT imaging was performed through the abdomen and pelvis. IV contrast: Isovue 300 100 mL. Enteric contrast: No. Reconstructions: Coronal and sagittal. In accordance with CT protocol optimization, one or more of the following dose reduction techniques were utilized for this exam: automated exposure control, adjustment of mA and/or KV based on patient size, or use of iterative reconstructive technique. FINDINGS: Lung Bases: Unremarkable. Liver: Normal. No masses. Gallbladder/Bile Ducts: Contracted gallbladder. Common bile duct stent again noted. There is pneumobilia as noted previously. Spleen: The spleen measures 17 cm longitudinally, unchanged. Pancreas: Atrophic pancreatic tail. There is an amorphous, low-density pancreatic head and body mass measuring approximately 3.3 x 3.2 cm, previously 3.7 x 3.3 cm. No peripancreatic lymphadenopathy. The mass obliterates the portosplenic venous confluence noting numerous mesenteric, gastric and perisplenic varices. Adrenal Glands: Normal. Kidneys: Stable bilateral renal cysts. No hydronephrosis. There is no retroperitoneal lymphadenopathy. Peritoneal Cavity/Bowel: Mild ascites. Fluid-filled, mildly distended ascending and proximal transverse colon. There is no small bowel obstruction. No pneumoperitoneum. No evidence of appendicitis or diverticulitis. Pelvic Organs: Normal. The bladder and visualized pelvic organs are within normal limits. Vasculature: No aneurysms. Bones: No significant abnormality. Other: None. IMPRESSION: 1. Slight interval decrease in size of pancreatic mass. 2. Stable splenomegaly with mild ascites and extensive varices secondary to obliteration of the portosplenic venous confluence. 3. Stable CBD stent placement and pneumobilia. 4. Mildly distended, fluid-filled ascending and transverse colon with no obvious obstructing lesion or small bowel obstruction. No pneumoperitoneum. RADIA
[2018-08-12] MEDS ORDERED: LORazepam 0.5 MG TABLET PO STA (22:16)
[2018-08-12 22:38] VITALS: BP 99/59
== END 2018-08-12 22:34 | disposition home or self-care (01) ==
LOC: ED 17:22
DX: C25.9 Malignant neoplasm of pancreas, unspecified (principal); R10.84 Generalized abdominal pain
CPT/HCPCS: 74177; 96374; 99283; A9270; J2060; Q9967

== ENCOUNTER 2018-08-24 08:25 | Outpatient (CLI) | payer MEDICARE, OTHER | END 2018-08-24 08:26 | disposition home or self-care (01) | LOC: LAB 08:25 | PROVIDERS: ATTEND Naturopath | DX: R70.0 Elevated erythrocyte sedimentation rate (principal); R79.82 Elevated C-reactive protein (CRP); R79.0 Abnormal level of blood mineral | CPT/HCPCS: 36415; 82525; 84630; 85651; 86141 ==

== ENCOUNTER 2018-08-26 10:16 | Outpatient (CLI) | payer MEDICARE, OTHER | END 2018-08-26 10:17 | disposition critical access hospital (66) | LOC: EMS 10:16 | PROVIDERS: ATTEND Surgery | DX: R53.1 Weakness (principal); K92.0 Hematemesis | CPT/HCPCS: A0425; A0427 ==

== ENCOUNTER 2018-08-26 10:23 | Emergency (ER) | payer MEDICARE, OTHER ==
[2018-08-26] MEDS ORDERED: TRANEXAMIC ACID 1,000 MG in SODIUM CHLORIDE 0.9% 500 ML IV STA (10:39)
[2018-08-26] MEDS ORDERED: OCTREOTIDE 100 MCG/ML SYRINGE IVP STA (10:39)
[2018-08-26] MEDS ORDERED: OCTREOTIDE 500 MCG in SODIUM CHLORIDE 0.9% 100ML 95 ML IV STA (10:39)
[2018-08-26] MEDS ORDERED: SODIUM CHLORIDE 0.9% 2,000 ML IV ONE (10:39)
[2018-08-26] MEDS ORDERED: OCTREOTIDE 100 MCG/ML VIAL IVP STA (10:43)
[2018-08-26] MEDS ORDERED: OCTREOTIDE 500 MCG in SODIUM CHLORIDE 0.9% 100ML 99 ML IV STA (10:44)
--- NOTE | 2018-08-26 10:46 | ED Physician Documentation ---
History of Present Illness - Stated complaint Stated Complaint: NEAR SYNCOPE - Chief complaint Chief Complaint: Neuro - Additonal information Additional information: hx from pt MAC EMR 67 male with pancreatic cancer per pt hx variceal bleeding txed by Dr Agarwal at [facility] 08/10/18 - pt states varices are due to pancreatic cancer and not primary liver dz no recent black stools but weak yesterday now with hematemesis and BRMPR and diffuse weakness / near syncope had a low grade fever yesterday as well denies BLANCHARD CP AP does not have a POLST at cancer clinic pt states no heroic efforts- no CPR or ventilator - blood and IVF and surgery OK hx afib no blood thinners Review of Systems Constitutional: reports: Fever, Fatigue Cardiac: denies: Chest pain / pressure Respiratory: denies: Dyspnea GI: reports: Hematemesis, Bloody / black stool. denies: Abdominal Pain Endocrine: denies: Easy bruising / bleeding Immunocompromised: reports: Immunocompromised (chemo yesterday due for neulasta tomorrow) PD PAST MEDICAL HISTORY - Past Medical History Cardiovascular: Atrial fibrillation Respiratory: None Endocrine/Autoimmune: None GI: None : None HEENT: None Psych: None Musculoskeletal: None Derm: None - Past Surgical History Past Surgical History: Yes General: Other Cardiovascular: Other HEENT: Tonsil/Adenoidectomy - Present Medications Home Medications: Ambulatory Orders Medication Instructions Recorded Confirmed diltiaZEM CD [Cardizem Cd] 120 mg PO DAILY 12/31/15 07/20/18 Flecainide Acetate 100 mg PO TID 03/06/17 07/20/18 Prochlorperazine Maleate 10 mg PO Q6H PRN 03/06/17 07/20/18 [Compazine] Gabapentin [Neurontin] 1 tab ORAL QPM 06/09/17 07/20/18 Loratadine [Claritin] 10 mg PO DAILY 07/07/17 07/20/18 Bisacodyl [Dulcolax] 10 mg PO DAILY 09/15/17 07/20/18 Omeprazole 40 mg PO BID 09/15/17 07/20/18 Nadolol 1 tab PO DAILY 02/02/18 07/20/18 Hyoscyamine [Levsin] 0.125 mg SL AC PRN #10 tablet 08/12/18 Lorazepam [Ativan] 1 mg PO TID PRN #7 tablet 08/12/18 - Allergies Allergies/Adverse Reactions: Allergies Allergy/AdvReac Type Severity Reaction Status Date / Time No Known Drug Allergies Allergy Verified 08/12/18 18:01 - Social History Does the pt smoke?: No Smoking Status: Never smoker Does the pt drink ETOH?: Yes Does the pt have substance abuse?: No - Immunizations Immunizations are current?: Yes - POLST Patient has POLST: No PD ED PE NORMAL - Vitals Vital signs reviewed: Yes (hyptensivem very pale) - HEENT HEENT: Other (white conj) - Neck Neck: Supple, no meningeal sign - Cardiac Cardiac: RRR - Respiratory Respiratory: No respiratory distress, Clear bilaterally - Abdomen Abdomen: Non tender - Derm Derm: Other (very very pale) - Neuro Neuro: Alert and oriented X 3 Results - Vitals Vitals: Vital Signs - 24 hr 08/26/18 08/26/18 08/26/18 10:27 10:30 10:36 Temperature 36.8 C Heart Rate 85 61 60 Respiratory 16 22 22 Rate Blood Pressure 88/47 L 96/51 L 107/41 L O2 Saturation 100 91 L 100 08/26/18 08/26/18 08/26/18 10:48 10:55 11:14 Temperature Heart Rate 58 L 60 60 Respiratory 21 18 28 H Rate Blood Pressure 106/69 98/40 L 108/69 O2 Saturation 95 96 100 08/26/18 08/26/18 08/26/18 11:22 11:27 11:30 Temperature 36.8 C Heart Rate 63 66 66 Respiratory 26 H 33 H 27 H Rate Blood Pressure 98/50 L 106/63 125/48 L O2 Saturation 100 92 100 08/26/18 08/26/18 08/26/18 11:37 11:53 12:00 Temperature 36.8 C Heart Rate 66 84 81 Respiratory 27 H 22 13 Rate Blood Pressure 125/48 L 128/68 122/64 O2 Saturation 100 100 08/26/18 12:06 Temperature Heart Rate 77 Respiratory 12 Rate Blood Pressure 132/66 H O2 Saturation 100 Oxygen O2 Source Ambu bag - EKG (time done) 1121 Rate: Rate (enter#) (65) Rhythm: Other (reg, suspect sinus but poor baseline) Intervals: Wide QRS (borderline) Ischemia: Non specific changes - Labs Labs: Laboratory Tests 08/26/18 08/26/18 08/26/18 10:42 10:42 10:42 WBC 4.7 L RBC 1.92 L Hgb 5.8 L* Hct 17.2 L* MCV 89.7 MCH 30.2 MCHC 33.7 RDW 22.1 H Plt Count 10 L* MPV 11.7 H Neut # (Auto) Not Reportable Lymph # (Auto) Not Reportable [place] # (Auto) Not Reportable Eos # (Auto) Not Reportable Baso # (Auto) Not Reportable Absolute Nucleated RBC Not Reportable Total Counted 100 Band Neuts % (Manual) 6 Abnorm Lymph % (Manual) 0 Metamyelocytes % 2 H Myelocytes % 2 H Nucleated RBC % Not Reportable Neutrophils # (Manual) 4.0 Lymphocytes # (Manual) 0.4 L Monocytes # (Manual) 0.1 Eosinophils # (Manual) 0.0 Basophils # (Manual) 0.0 Differential Comment MANUAL DIFFERENTIAL Platelet Estimate DECREASED (<130,000) RBC Morph Micro Appear 1+ HYPOCHROMASIA PT 16.4 H INR 1.5 H Sodium 130 L Potassium 5.5 H Chloride 98 L Carbon Dioxide 21 Anion Gap 11.0 BUN 39 H Creatinine 1.1 Estimated GFR (MDRD) 67 L Glucose 148 H Calcium 8.6 Total Bilirubin 2.3 H AST 58 H ALT 16 Alkaline Phosphatase 126 H Total Protein 5.4 L Albumin 2.6 L Globulin 2.8 Albumin/Globulin Ratio 0.9 L Lipase 21 L Blood Type Antibody Screen Crossmatch IS Only 08/26/18 11:00 WBC RBC Hgb Hct MCV MCH MCHC RDW Plt Count MPV Neut # (Auto) Lymph # (Auto) [place] # (Auto) Eos # (Auto) Baso # (Auto) Absolute Nucleated RBC Total Counted Band Neuts % (Manual) Abnorm Lymph % (Manual) Metamyelocytes % Myelocytes % Nucleated RBC % Neutrophils # (Manual) Lymphocytes # (Manual) Monocytes # (Manual) Eosinophils # (Manual) Basophils # (Manual) Differential Comment Platelet Estimate RBC Morph Micro Appear PT INR Sodium Potassium Chloride Carbon Dioxide Anion Gap BUN Creatinine Estimated GFR (MDRD) Glucose Calcium Total Bilirubin AST ALT Alkaline Phosphatase Total Protein Albumin Globulin Albumin/Globulin Ratio Lipase Blood Type A POSITIVE Antibody Screen NEGATIVE Crossmatch IS Only See Detail - Rads (name of study) CXR Radiology: EMP read indepedently (no rad report at time of departure - Stone below diaphragm, ET at clavicular head - will advance 2, no pneumo) PD MEDICAL DECISION MAKING - ED course ED course: catastrophic upper GIB / presumed variceal bleed given hx of same port + large bore IV X 2 2 L NS 2 units blood TXA 1 g octreotide bolus and gtt (gtt pending at time of transfer and given to [facility]) will place Stone - being brought from central supply called [facility] for transfer spoke to GI Dr Renteria - he rec add ceftriaxone and will be admitted to lease analyst [facility] clearing a bed [facility] on standby spoke to lease analyst Dr Jalloh -she accepts the pt in transfer - advised that onc states pt needs his neulasta as well - she rec protonix 40 and wants pt intubated so i spoke to pt and again and since this is hoped to be a time limited ventilator and not penitentiary life support they agree to intubation for now stone placed - large amount brown and bloody emesis - dropped to 50, gastric balloon inflated with 200 cc air, and traction reached at 45m secured, then inflated esoph ballon with 30 cc air pending manometry measurement - [facility] was able to measure and per lease analyst req will set at 30 then intubated by anesthesia ( as airway anatomy was anticipated to be displaced by the stone so brought fiberoptic equip - passed with glidescope first try s complications) fup CXR showed stone in place and ET a little high so advanced 2 cm intubated with ketamine and tawanna and then given versed for sedation pressures improved so did not need albumin or levophed - Critical Care Time(min): 60 Time Includes: Direct patient care, Review records, Reassess patient, Document care, Coordinate care, Medical consult, Family consult for tx dec, See progress note Procedures excluded from critical care time: See progress note (stone by me, ET by anesthesia) - Sepsis Event Vital Signs: Vital Signs - 24 hr 08/26/18 08/26/18 08/26/18 10:27 10:30 10:36 Temperature 36.8 C Heart Rate 85 61 60 Respiratory 16 22 22 Rate Blood Pressure 88/47 L 96/51 L 107/41 L O2 Saturation 100 91 L 100 08/26/18 08/26/18 08/26/18 10:48 10:55 11:14 Temperature Heart Rate 58 L 60 60 Respiratory 21 18 28 H Rate Blood Pressure 106/69 98/40 L 108/69 O2 Saturation 95 96 100 08/26/18 08/26/18 08/26/18 11:22 11:27 11:30 Temperature 36.8 C Heart Rate 63 66 66 Respiratory 26 H 33 H 27 H Rate Blood Pressure 98/50 L 106/63 125/48 L O2 Saturation 100 92 100 08/26/18 08/26/18 08/26/18 11:37 11:53 12:00 Temperature 36.8 C Heart Rate 66 84 81 Respiratory 27 H 22 13 Rate Blood Pressure 125/48 L 128/68 122/64 O2 Saturation 100 100 08/26/18 12:06 Temperature Heart Rate 77 Respiratory 12 Rate Blood Pressure 132/66 H O2 Saturation 100 Oxygen O2 Source Ambu bag Departure - Departure Disposition: 02 Transfer Acute Care [facility] Clinical Impression: Thrombocytopenia Varices, esophageal Qualifiers: Esophageal varices type: unspecified type Esophageal varices bleeding: with bleeding Qualified Code(s): I85.01 - Esophageal varices with bleeding GI bleed Qualifiers: GI bleed type/associated pathology: unspecified gastrointestinal hemorrhage type Qualified Code(s): K92.2 - Gastrointestinal hemorrhage, unspecified Anemia Qualifiers: Anemia type: unspecified type Qualified Code(s): D64.9 - Anemia, unspecified Condition: Critical Discharge Date/Time: 08/26/18 12:00
[2018-08-26] MEDS ORDERED: cefTRIAXone 1 GM in SODIUM CHLORIDE 0.9% MINIBAG 100 ML IV STA (10:49)
[2018-08-26 10:56] LABS: BASOPHILS % (AUTO) 0.4 %; LYMPHOCYTES % (AUTO) 3.3 %; MEAN CORPUSCULAR HEMOGLOBIN 30.2 pg (27.0-31.0); MEAN CORPUSCULAR HGB CONC 33.7 g/dL (32.0-36.0); MEAN CORPUSCULAR VOLUME 89.7 fL (80.0-94.0); MEAN PLATELET VOLUME 11.7 fL (7.4-11.4); MONOCYTES % (AUTO) 8.7 %; NEUTROPHILS % (AUTO) 87.6 %; RED BLOOD COUNT 1.92 10^6/uL (4.70-6.10); RED CELL DISTRIBUTION WIDTH 22.1 % (12.0-15.0); WHITE BLOOD COUNT 4.7 x10^3/uL (4.8-10.8)
[2018-08-26 10:59] LABS: HGB - HEMOGLOBIN 5.8 g/dL (14.0-18.0); PLT - PLATELET COUNT 10 10^3/uL (130-450)
[2018-08-26 11:04] LABS: INR 1.5 (0.8-1.2); PT - PROTHROMBIN TIME 16.4 secs (9.9-12.6)
[2018-08-26 11:06] LABS: ALBUMIN 2.6 g/dL (3.2-5.5); ALBUMIN/GLOBULIN RATIO 0.9 (1.0-2.2); BILIRUBIN,TOTAL 2.3 mg/dL (0.2-1.0); CALCIUM 8.6 mg/dL (8.5-10.3); CREATININE 1.1 mg/dL (0.6-1.2); TOTAL PROTEIN 5.4 g/dL (6.7-8.2)
[2018-08-26] MEDS ORDERED: PANTOPRAZOLE 40 MG VIAL IVP STA (11:16)
[2018-08-26 11:37] LABS: ABNORMAL LYMPHS % (MANUAL) 0 %
[2018-08-26 11:43] LABS: BAND NEUTROPHILS % (MANUAL) 6 %; LYMPHOCYTES # (MANUAL) 0.4 10^3/uL (1.5-3.5); LYMPHOCYTES % (MANUAL) 8 %; METAMYELOCYTES % (MANUAL) 2 %; MONOCYTES # (MANUAL) 0.1 10^3/uL (0.0-1.0); MYELOCYTES % (MANUAL) 2 %; NEUTROPHILS % (MANUAL) 79 %
[2018-08-26 11:44] LABS: PLATELET ESTIMATE, MANUAL DECREASED (<130,000) (NORMAL)
[2018-08-26 11:45] LABS: DIFFERENTIAL COMMENT MANUAL DIFFERENTIAL
[2018-08-26 12:07] VITALS: BP 132/66
--- NOTE | 2018-08-26 12:20 | ANESTHESIA PROCEDURE NOTE ---
Anesthesia Intubation Template - Intubation Blade: positive: Glidescope Tube: Size-enter number (#8.0), Cuffed, Marked at lips-enter cm (22cm) Route: Oral Placement Confirmation: End tidal CO2, Bilateral breath sounds, Other (chest xray pending) Complications: No complications (Called to intubate patient for bleeding esophageal varicies. Stone tube placed prior to intubation attempt. Patient induced with 80mg of ketamine, 2mg versed and 50mg of rocuronium. Laryngoscopy with #3 glidescope and grade 1 view obtained. A #8.0 ETT placed with ease and ETCO2 obtained. Bilater Breath sounds equal. Vital signs were monitored thru out and Blood pressure at the end of intubation was 128/80. Patient tolerated well and care was returned to ED staff.)
--- NOTE | 2018-08-26 12:37 | XRAY Report ---
Reason: post stone and ET Procedure Date: 08/26/2018 Accession Number: [id number] / [id number] Procedure: XR - Chest 1 View X-Ray CPT Code: 28366 FULL RESULT: EXAM: CHEST RADIOGRAPHY EXAM DATE: 08/26/2018 12:07 PM. CLINICAL HISTORY: Acute upper gastrointestinal bleeding status post Stone tube placement. COMPARISON: Chest 2 view PA/lat 08/17/2017 2:20 PM. TECHNIQUE: 1 view. FINDINGS: The endotracheal tube terminates with its tip at the inferior endplate of the T2 vertebral body approximately 6 cm above the ermelinda. The Stone tube is seen coursing below the diaphragm towards the left upper quadrant in the expected region of the stomach. An accessed left subclavian port with its tip in the region of the superior cavoatrial junction is noted. Compared to the previous radiograph, hyperdensities suggestive of a glue embolization in the epigastric region are newly identified, correlate to recent interventions for upper GI bleeding. There is no lobar consolidation, sizable pneumothorax or pleural effusion. IMPRESSION: Relatively high positioning of the endotracheal tube, would suggest advancement of 3 cm for optimal positioning. Stone tube in position. CRITICAL RESULT: The findings were discussed with Dr. Mcnair on 08/26/2018 at 12:[address] Mcnair shared that the endotracheal tube had already been advanced since taking of the x-ray and the patient is currently en route and being airlifted to a higher level of care. [facility]
== END 2018-08-26 12:00 | disposition short-term general hospital (02) ==
LOC: EDUNIT# → ED 10:23
DX: D69.6 Thrombocytopenia, unspecified (principal); I85.01 Esophageal varices with bleeding; K92.2 Gastrointestinal hemorrhage, unspecified; D64.9 Anemia, unspecified; R94.31 Abnormal electrocardiogram [ECG] [EKG]; C25.9 Malignant neoplasm of pancreas, unspecified
CPT/HCPCS: 31500; 36415; 71045; 80053; 83690; 85025; 85610; 86850; 86900; 86901; 86920; 93005; 96361; 96365; 96368; 96375; 99284; 99285; J2354; P9016

== ENCOUNTER 2018-09-20 08:00 | Outpatient (CLI) | payer MEDICARE, OTHER | END 2018-09-20 08:01 | disposition home or self-care (01) | LOC: LAB.R 08:00 | PROVIDERS: ATTEND Internal Medicine Infectious Disease | DX: R65.20 Severe sepsis without septic shock (principal); I48.0 Paroxysmal atrial fibrillation; C25.9 Malignant neoplasm of pancreas, unspecified; K92.2 Gastrointestinal hemorrhage, unspecified | CPT/HCPCS: 87040 ==

== ENCOUNTER 2018-09-24 11:31 | Outpatient (CLI) | payer MEDICARE, OTHER ==
[2018-09-24] MEDS ORDERED: BUFFERED LIDOCAINE 10 ML SYRINGE IU ONE (14:28)
--- NOTE | 2018-09-24 14:29 | Ultrasound Report ---
Reason: PANCREATIC CANCER Procedure Date: 09/24/2018 Accession Number: [id number] / [id number] Procedure: US - Abdominal Paracentesis CPT Code: FULL RESULT: EXAM: Abdominal Paracentesis DATE: 09/24/2018 1:55 PM CLINICAL HISTORY: PANCREATIC CANCER COMPARISON: 12/02/2017 FINDINGS: Following obtaining informed consent, a suitable site in the patient's right lower abdomen was selected with ultrasound. The skin was prepped and draped in the usual sterile fashion. The skin and soft tissues were anesthetized with buffered lidocaine. A Safetycentesis catheter was inserted into the peritoneal cavity, and approximately 7 liters of fluid were removed without difficulty. The patient tolerated the procedure well. No immediate complications. IMPRESSION: Successful ultrasound-guided paracentesis, yielding approximately 7 L of fluid.
== END 2018-09-24 11:32 | disposition home or self-care (01) ==
LOC: DI 11:31
PROVIDERS: ATTEND Internal Medicine Hematology & Oncology
DX: C25.9 Malignant neoplasm of pancreas, unspecified (principal)
CPT/HCPCS: 49083

== ENCOUNTER 2018-09-28 11:29 | Inpatient (IN) | payer MEDICARE, OTHER ==
--- NOTE | 2018-09-28 12:26 | ED Physician Documentation ---
PD HPI LOWER EXT INJURY - Stated complaint Stated Complaint: L CALF PAIN/FEVER - Chief complaint Chief Complaint: General - History obtained from History obtained from: Patient, Family () - History of Present Illness PD HPI LOW EXT INJURY LOCATION: Left, Calf, Other (He has several problems going on currently. The main 2 presentations are for feeling of fever and chills last night with his measuring his temperature to between 100.5 and 101. He has felt chilled during the night. He states he has had a little bit of nasal congestion and a slight cough but no trouble breathing. He also woke to a feeling of left calf pain on the medial aspect and was worried about a blood clot. He denied this dyspnea or chest pain per se. He had recently been hospitalized at [facility] about a month ago for upper GI bleeding, variceal bleeding, and did end up with positive blood cultures of Klebsiella and E. coli as well. He was in the hospital 5 or 6 days with IV antibiotics and was discha rged with IV antibiotics daily for 8 more days. This finished 12 days ago and he has been feeling okay in the interval time back to his baseline. His baseline does include general malaise with chemotherapy and pancreatic cancer and recurrent ascites. He was seen outpatient for a therapeutic paracentesis 4 days ago and had 8 L drained without any problems. He denies any abdominal pain per se.) Type of injury: No: Fall, Blunt / blow Timing - onset: Last night (he had fever and chills develop last night. Noted left calf pain today.) Timing - details: Gradual onset, Waxing and waning Worsened by: Palpating. No: Moving Associated symptoms: No: Weakness, Numbness, Swelling Recently seen: Clinic (paracentesis 4 days ago of 8 liters therapuetically. Finished IV abx 12 days ago. Was in Aug 28- for sepsis, bacteremia, new atrial fib.) Review of Systems Constitutional: reports: Fever (started last night), Chills, Myalgias Nose: denies: Rhinorrhea / runny nose, Congestion Throat: denies: Sore throat Cardiac: reports: Calf pain (just today, medial left.). denies: Chest pain / pressure, Palpitations, Pedal edema Respiratory: reports: Cough (mild for few days) GI: reports: Abdominal Swelling. denies: Nausea, Vomiting, Diarrhea : denies: Dysuria, Frequency Skin: denies: Rash, Lesions Neurologic: reports: Generalized weakness. denies: Focal weakness, Numbness, Near syncope, Altered mental status, Headache Endocrine: reports: Weight loss. denies: Weight gain, Easy bruising / bleeding Immunocompromised: reports: Immunocompromised, Chemotherapy PD PAST MEDICAL HISTORY - Past Medical History Cardiovascular: Atrial fibrillation Respiratory: None Endocrine/Autoimmune: None GI: None : None HEENT: None Psych: None Musculoskeletal: None Derm: None - Past Surgical History Past Surgical History: Yes General: Other Cardiovascular: Other HEENT: Tonsil/Adenoidectomy - Present Medications Home Medications: Ambulatory Orders Medication Instructions Recorded Confirmed diltiaZEM CD [Cardizem Cd] 120 mg PO DAILY 12/31/15 07/20/18 Prochlorperazine Maleate 10 mg PO Q6H PRN 03/06/17 07/20/18 [Compazine] Gabapentin [Neurontin] 1 tab ORAL QPM 06/09/17 07/20/18 Loratadine [Claritin] 10 mg PO DAILY 07/07/17 07/20/18 Bisacodyl [Dulcolax] 10 mg PO DAILY 09/15/17 07/20/18 Omeprazole 40 mg PO BID 09/15/17 07/20/18 Nadolol 1 tab PO DAILY 02/02/18 07/20/18 Lorazepam [Ativan] 1 mg PO TID PRN #7 tablet 08/12/18 Amiodarone [Pacerone] mg PO DAILY 09/28/18 - Allergies Allergies/Adverse Reactions: Allergies Allergy/AdvReac Type Severity Reaction Status Date / Time No Known Drug Allergies Allergy Verified 09/28/18 11:48 - Social History Does the pt smoke?: No Smoking Status: Never smoker Does the pt drink ETOH?: Yes Does the pt have substance abuse?: No - Family History Family history: reports: Non contributory - Immunizations Immunizations are current?: Yes - POLST Patient has POLST: No PD ED PE NORMAL - Vitals Vital signs reviewed: Yes (BP low but he says baseline is about 100 systolic and HR 50. ) - General General: Alert and oriented X 3 - HEENT HEENT: Atraumatic, Ears normal, Pharynx benign. No: Moist mucous membranes - Neck Neck: Supple, no meningeal sign, No adenopathy, No JVD - Cardiac Cardiac: RRR, No murmur - Respiratory Respiratory: Clear bilaterally - Abdomen Abdomen: Normal bowel sounds, Soft, No organomegaly, Other (minimally tender generally without percussion nor rebound. He does have moderate ascites, but it is not tense. No hernias. ) - Male Male : Deferred - Rectal Rectal: Deferred - Back Back: No CVA TTP - Derm Derm: Normal color, Warm and dry - Extremities Extremities: No deformity, Normal ROM s pain, No edema, No calf tenderness / cord, Other (there is some firmness of superficial vein medial left mid calf. No posterior calf tenderness nor swelling. No tenderness in thigh nor popliteal area. ) - Neuro Neuro: Alert and oriented X 3, No motor deficit, Normal speech Eye Opening: Spontaneous Motor: Obeys Commands Verbal: Oriented GCS Score: 15 Results - Vitals Vitals: Vital Signs - 24 hr 09/28/18 09/28/18 09/28/18 11:45 12:24 14:00 Temperature 36.7 C Heart Rate 50 L 49 L 50 L Respiratory 18 27 H 24 Rate Blood Pressure 97/59 L 99/55 L 92/60 O2 Saturation 99 97 98 09/28/18 14:52 Temperature Heart Rate 48 L Respiratory 26 H Rate Blood Pressure 105/64 O2 Saturation 98 Oxygen O2 Source Room air - Labs Labs: Microbiology 09/28/18 14:47 Body Fluid Culture - Preliminary Peritoneal Fluid Laboratory Tests 09/28/18 09/28/18 09/28/18 12:20 12:20 12:20 WBC 8.6 RBC 2.96 L Hgb 8.7 L Hct 26.1 L MCV 88.0 MCH 29.3 MCHC 33.3 RDW 18.2 H Plt Count 118 L MPV 9.5 Neut # (Auto) 7.7 H Lymph # (Auto) 0.2 L [place] # (Auto) 0.6 Eos # (Auto) 0.0 Baso # (Auto) 0.0 Absolute Nucleated RBC 0.00 Nucleated RBC % 0.0 Sodium 133 L Potassium 4.2 Chloride 103 Carbon Dioxide 23 Anion Gap 7.0 BUN 16 Creatinine 0.8 Estimated GFR (MDRD) 96 Glucose 129 H Lactic Acid 1.5 Calcium 8.9 Total Bilirubin 1.0 AST 32 ALT 10 Alkaline Phosphatase 142 H Total Protein 6.1 L Albumin 2.6 L Globulin 3.5 Albumin/Globulin Ratio 0.7 L Lipase 20 L Urine Color Urine Clarity Urine pH Ur Specific [place] Urine Protein Urine Glucose (UA) Urine Ketones Urine Occult Blood Urine Nitrite Urine Bilirubin Urine Urobilinogen Ur Leukocyte Esterase Urine RBC Urine WBC Ur Squamous Epith Cells Urine Bacteria Ur Microscopic Review Urine Culture Comments Fluid Source Fluid Color Fluid Clarity Fluid WBC Fluid RBC Fluid Neutrophils % Fluid Lymphocytes % Fluid Monocytes % Fluid Macrophages % Fld Mesothelial Cell % Influenza A (Rapid) Influenza B (Rapid) 09/28/18 09/28/18 09/28/18 12:20 14:29 14:47 WBC RBC Hgb Hct MCV MCH MCHC RDW Plt Count MPV Neut # (Auto) Lymph # (Auto) [place] # (Auto) Eos # (Auto) Baso # (Auto) Absolute Nucleated RBC Nucleated RBC % Sodium Potassium Chloride Carbon Dioxide Anion Gap BUN Creatinine Estimated GFR (MDRD) Glucose Lactic Acid Calcium Total Bilirubin AST ALT Alkaline Phosphatase Total Protein Albumin Globulin Albumin/Globulin Ratio Lipase Urine Color YELLOW Urine Clarity CLEAR Urine pH 6.5 Ur Specific [place] 1.015 Urine Protein NEGATIVE Urine Glucose (UA) NEGATIVE Urine Ketones NEGATIVE Urine Occult Blood SMALL H Urine Nitrite NEGATIVE Urine Bilirubin NEGATIVE Urine Urobilinogen 0.2 (NORMAL) Ur Leukocyte Esterase NEGATIVE Urine RBC 0-5 Urine WBC 0-3 Ur Squamous Epith Cells RARE Squamous Urine Bacteria Rare Ur Microscopic Review INDICATED Urine Culture Comments NOT INDICATED Fluid Source PERITONEAL Fluid Color YELLOW Fluid Clarity CLOUDY Fluid WBC 159 Fluid RBC 1011 Fluid Neutrophils % 18 Fluid Lymphocytes % 10 Fluid Monocytes % 10 Fluid Macrophages % 62 Fld Mesothelial Cell % 0 Influenza A (Rapid) Negative Influenza B (Rapid) Negative - Rads (name of study) duplex left leg Radiology: Prelim report reviewed (no DVT) chest xray Radiology: Prelim report reviewed, EMP read contemporaneously (streaky bilateral lower lobe infitrates, more c/w atelectasis. ) Procedures - Paracentesis Preparation: Consent obtained (verbal - as he has had these done "12 times or more".), Ultrasound guidance, Sterile prep and drape, Local anesthesia Location: LLQ Technique: Catheter over needle Fluid: Cloudy, Sent for cell count, Sent for gram stain, Sent for culture, Volume - enter cc (3200). No: Bloody Aftercare: No complications, Patient tolerated well, Dressing applied, Fluid leak - comment (mild dribble, improved with compressive tape) PD MEDICAL DECISION MAKING - ED course Complexity details: reviewed results, re-evaluated patient, considered differential (Onset of fever last night in a gentleman who is been hospitalized a few weeks ago and has considerable medical problems with ascites pancreatic cancer and liver problems due to increased portal pressure. He had had bacteremia a month ago and treated IV antibiotics for 2 weeks. He had a paracentesis 4 days ago. We will need to broadly investigate for potential sources of significant infection. This will include blood cultures, chest x- ray, urine test, blood tests, flu swab and a paracentesis diagnostically. The patient does not appear ill.), d/w patient, d/w family () ED course: At this point with a white cell count on the paracentesis of 150 and the threshold for concern being above 100, I think we would empirically treat for prior peritonitis. We will give him enough spectrum of antibiotics to cover for potential pneumonia or bacteremia as well. The patient does not appear ill. At this point he asks if we are able to treat with IV antibiotics and pending cultures here at our facility rather than transferring to [facility] where specialists are. I will talk with the hospitalist about that. Concern is that he had gotten sick quickly with sepsis and variceal bleeding a month or so ago and transferring before problems is better treatment than awaiting significant problems to develop here. Part of it depends on the likely probability of worsening and I would have the hospitalist discussed that with the patient and his . Departure - Departure Clinical Impression: Fever and chills, Peritonitis, Superficial phlebitis Pancreatic cancer Qualifiers: Pancreatic malignancy location: unspecified Qualified Code(s): C25.9 - Malignant neoplasm of pancreas, unspecified Ascites Qualifiers: Ascites type: malignant Qualified Code(s): R18.0 - Malignant ascites Condition: Stable Record reviewed to determine appropriate education?: Yes
[2018-09-28 12:30] LABS: BASOPHILS % (AUTO) 0.5 %; EOSINOPHILS % (AUTO) 0.3 %; HGB - HEMOGLOBIN 8.7 g/dL (14.0-18.0); LYMPHOCYTES # (AUTO) 0.2 10^3/uL (1.5-3.5); LYMPHOCYTES % (AUTO) 2.1 %; MEAN CORPUSCULAR HEMOGLOBIN 29.3 pg (27.0-31.0); MEAN CORPUSCULAR HGB CONC 33.3 g/dL (32.0-36.0); MEAN PLATELET VOLUME 9.5 fL (7.4-11.4); MONOCYTES # (AUTO) 0.6 10^3/uL (0.0-1.0); MONOCYTES % (AUTO) 7.1 %; NEUTROPHILS # (AUTO) 7.7 10^3/uL (1.5-6.6); PLT - PLATELET COUNT 118 10^3/uL (130-450); RED BLOOD COUNT 2.96 10^6/uL (4.70-6.10); RED CELL DISTRIBUTION WIDTH 18.2 % (12.0-15.0); WHITE BLOOD COUNT 8.6 x10^3/uL (4.8-10.8)
[2018-09-28 12:43] LABS: ALBUMIN 2.6 g/dL (3.2-5.5); ALBUMIN/GLOBULIN RATIO 0.7 (1.0-2.2); CALCIUM 8.9 mg/dL (8.5-10.3); CREATININE 0.8 mg/dL (0.6-1.2); TOTAL PROTEIN 6.1 g/dL (6.7-8.2)
[2018-09-28 12:47] LABS: BILIRUBIN,URINE NEGATIVE (NEGATIVE); GLUCOSE, URINE (UA) NEGATIVE (NEGATIVE); KETONES,URINE (UA) NEGATIVE (NEGATIVE); LEUKOCYTE ESTERASE, URINE NEGATIVE (NEGATIVE); NITRITE,URINE NEGATIVE (NEGATIVE); OCCULT BLOOD,URINE SMALL (NEGATIVE); PH,URINE 6.5 PH (5.0-7.5); PROTEIN,URINE NEGATIVE (NEGATIVE); UROBILINOGEN,URINE 0.2 (NORMAL) E.U./dL (NORMAL)
[2018-09-28 12:50] LABS: CLARITY,URINE CLEAR (CLEAR)
[2018-09-28 12:57] LABS: BACTERIA,URINE Rare /HPF (None Seen); RBC,URINE 0-5 /HPF (0-5); SQUAMOUS EPITHELIAL CELL,UR RARE Squamous (<= Few)
--- NOTE | 2018-09-28 14:21 | XRAY Report ---
Reason: chest pain left sided Procedure Date: 09/28/2018 Accession Number: [id number] / [id number] Procedure: XR - Chest 2 View X-Ray CPT Code: 13596 FULL RESULT: EXAM: CHEST RADIOGRAPHY EXAM DATE: 09/28/2018 02:01 PM. CLINICAL HISTORY: Chest pain left sided. COMPARISON: CHEST 1 VIEW 08/26/2018 11:55 AM. TECHNIQUE: 2 views. FINDINGS: Lungs/Pleura: Interval development of bibasilar linear opacities, atelectasis versus airspace disease. Interval development of small bilateral pleural effusions right greater than left. No pneumothorax. Mediastinum: Heart and mediastinal contours are unremarkable. Other: Port is unchanged in configuration. Evidence of glue embolization in the gastric variceal distribution is again seen. IMPRESSION: Interval bibasilar opacities and small effusions. RAD[facility]
[2018-09-28] MEDS ORDERED: CEFOTAXIME 2 GM in SODIUM CHLORIDE 0.9% MINIBAG 100 ML IV STA (14:58)
[2018-09-28 15:24] LABS: CC,BF RBC 1011 /mm^3
[2018-09-28 15:25] LABS: BF COLOR YELLOW; BF SOURCE PERITONEAL
--- NOTE | 2018-09-28 15:42 | Ultrasound Report ---
Reason: left calf pain and tender Procedure Date: 09/28/2018 Accession Number: [id number] / [id number] Procedure: US - Duplex Ext Veins Left CPT Code: FULL RESULT: EXAM: LEFT LOWER EXTREMITY VENOUS ULTRASOUND EXAM DATE: 09/28/2018 03:34 PM. CLINICAL HISTORY: Left calf pain and tenderness. COMPARISON: 09/28/2018 3:32 PM. TECHNIQUE: Real-time sonographic vascular imaging was performed by the dolphin researcher through the lower extremity utilizing both color-flow and Doppler spectral analysis. Multiple airport representative static images were saved for review. FINDINGS: Common Femoral Vein (CFV): Normal. CFV-GSV Junction: Normal. Profunda Femoral Vein (PFV): Normal. Femoral Vein (FV) Prox: Normal. Femoral Vein (FV) Mid: Normal. Femoral Vein (FV) Dist: Normal. Popliteal Vein: Normal. Posterior Tibial Veins: Normal. Peroneal Veins: Normal. IMPRESSION: No evidence for deep venous thrombosis. [facility]
[2018-09-28 15:54] LABS: LYMPHOCYTES %,BODY FLUID 10; MACROPHAGES %,BODY FLUID 62 %; MONOCYTES %,BODY FLUID 10 %
[2018-09-28 15:55] LABS: MESOTHELIAL %, BF 0 %
[2018-09-28] MEDS ORDERED: VANCOMYCIN INJ 1 GM in SODIUM CHLORIDE 0.9% 500 ML IV STA (16:40)
[2018-09-28] MEDS ORDERED: SODIUM CHLORIDE 0.9% 1,000 ML IV ONE (17:56)
[2018-09-28] MEDS ORDERED: ONDANSETRON ODT 4 MG TABLET TL PRN (18:21)
[2018-09-28] MEDS ORDERED: ONDANSETRON 4 MG/2 ML VIAL IVP PRN (18:21)
[2018-09-28] MEDS ORDERED: ACETAMINOPHEN 325 MG TABLET PO PRN (18:21)
[2018-09-28] MEDS ORDERED: oxyCODONE 5 MG TABLET PO PRN (18:21)
--- NOTE | 2018-09-28 19:48 | HISTORY & PHYSICAL EXAMINATION ---
Chief Complaint - Chief Complaint Chief Complaint: left leg pain and low grade fever History of Present Illness - Admitted From Admitted From:: Home>ER - History Obtained From Records Reviewed: [facility] History obtained from: Dr. 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 He has managed to survive 20 months since diagnosis. He was on Abraxane and Gemzar until August 2017. Then he was on modified FOLFOX6 since August 2017 until August 26, 2018. He presented to our ER here with fever, anemia, hypotension on August 26. He was found to have sepsis, GI bleeding from esophageal varices.He is intubated, a Sengstaken-Stone tube placed, and urgently transferred to [facility]. He had known portal hypertension from his tumor and had already been transfused and biliary stent 08/10/18. It is not alcoholic liver disease. While at [facility] he received IV antibiotics, transfusion, ligation of esophageal varices, and restent for the biliary obstruction and continued treatment of portal hypertension. He was also treated for newly diagnosed atrial fibrillation. He was sent home ~09/08/18 on IV antibiotics and finished them approximately September 15. He has been doing well. This gentleman still walks anywhere from 1-3 miles a day. Eats the food is put in front of him. Considers himself to have an excellent quality of life with ability to complete his activities of daily living without any assist whatsoever. He started having low-grade fevers yesterday. This was associated with left calf pain. He was afraid that it was a DVT in his leg and he came to the emergency room. There is no chest pain, shortness of breath. But he has a chronic daily, nonproductive cough that is new. No abdominal pain. No change in bowel habits. No urgency frequency dysuria. In the emergency room he was bradycardic to the 40s because of his propranolol. Afebrile at 36.8. Thin, tanned middle-aged male with slight abdominal distention from his ascites. In evaluating the patient, his left calf pain was not a problem. His venous Dopplers were negative and there is no cellulitis. But because he had an elevated white cell count, low-grade fever, the emergency room physician wanted to broaden the investigation for potential sources of significant infection. He had blood cultures done, chest x-ray done, and a paracentesis. His last paracentesis was 4 days previously. The paracentesis showed a white cell count of 150 with the threshold for concern being above 100. A long discussion was held in the emergency room about his wishes. We are a critical [facility] and we do not have gastroenterology, vascular surgery, infectious disease, or oncology. He has made it very clear that he wants everything possible done, including extraordinary measures, to keep him alive. With his high level of care needs in the past, this may not be the best place for him. However, after considering this, my blunt statements to the effect that we do not have specialty services here, he still wanted to be admitted here. History - Past Medical History Cardiovascular: reports: Atrial fibrillation Respiratory: reports: None Endocrine/Autoimmune: reports: None GI: reports: None : reports: None HEENT: reports: None Psych: reports: None Musculoskeletal: reports: None Derm: reports: None MRSA Hx?: No - Past Surgical History General: reports: Other Cardiovascular: reports: Other HEENT: reports: Tonsil/Adenoidectomy - POLST Patient has POLST: No Meds/Allgy - Home Medications Home Medications: Ambulatory Orders Medication Instructions Recorded Confirmed diltiaZEM CD [Cardizem Cd] 120 mg PO DAILY 12/31/15 07/20/18 Prochlorperazine Maleate 10 mg PO Q6H PRN 03/06/17 07/20/18 [Compazine] Gabapentin [Neurontin] 1 tab ORAL QPM 06/09/17 07/20/18 Loratadine [Claritin] 10 mg PO DAILY 07/07/17 07/20/18 Bisacodyl [Dulcolax] 10 mg PO DAILY 09/15/17 07/20/18 Omeprazole 40 mg PO BID 09/15/17 07/20/18 Nadolol 1 tab PO DAILY 02/02/18 07/20/18 Lorazepam [Ativan] 1 mg PO TID PRN #7 tablet 08/12/18 Amiodarone [Pacerone] mg PO DAILY 09/28/18 - Allergies Allergies/Adverse Reactions: Allergies Allergy/AdvReac Type Severity Reaction Status Date / Time No Known Drug Allergies Allergy Verified 09/28/18 11:48 Review of Systems - Constitutional Constitutional: reports: Fatigue, Fever, Chills, Malaise. denies: Weakness, Poor appetite, Diaphoresis, Night sweats - Eyes Eyes: denies: Pain, Irritation, Vision loss - Ears, Nose & Throat Ears, Nose & Throat: denies: Ear pain, Hearing aids, Vertigo, Nasal obstruction, Nasal congestion, Postnasal drainage, Sore throat - Cardiovascular Cariovascular: reports: Irregular heart rate. denies: Syncope, Exertional dyspnea, Decr. exercise tolerance - Respiratory Respiratory: denies: Cough, Sputum production, Wheezing, Snoring - Gastrointestinal Gastrointestinal: reports: Abdominal distention. denies: Abdominal pain - Genitourinary Genitourinary: denies: Dysuria, Frequency, Urgency - Musculoskeletal Musculoskeletal: denies: Muscle pain, Back pain, Muscle aches - Integumentary Integumentary: denies: Rash, Lesions - Neurological Neurological: denies: General weakness, Focal weakness - Psychiatric Psychiatric: denies: Depression, Anxiety, Suicidal - Endocrine Endocrine: denies: Polyuria, Polydypsia, Polyphagia - Hematologic/Lymphatic Hematologic/Lymphatic: reports: Anemia, Bruising Prior Level of Functionality: He is still ambulatory with regards to walking. He does anywhere from 1-3 miles a day. He still has a good appetite. Is cooking for both he and his . Still drives, able to pay the bills, and do all his activities of daily living without restriction. Exam - Vital Signs Reviewed Vital Signs: Yes Vital Signs: Vital Signs x48h Temp Pulse Pulse Resp BP BP Pulse Ox 09/28/18 19:27 36.8 C 52 L 20 115/57 L 100 09/28/18 19:16 48 L 18 101/60 98 09/28/18 17:51 49 L 22 101/58 L 98 09/28/18 14:52 48 L 26 H 105/64 98 09/28/18 14:00 50 L 24 92/60 98 09/28/18 12:24 49 L 27 H 99/55 L 97 - Physical Exam General Appearance: positive: No acute distress, Alert, Other (Thin tanned white male) Eyes Bilateral: positive: PERRL, EOMI ENT: positive: Pharynx nml Neck: positive: No JVD. negative: Stiff neck, Carotid bruit Respiratory: positive: Chest non-tender. negative: Wheezes, Rales, Rhonchi Cardiovascular: positive: Irregularly irregular. negative: Gallop/S4, Friction rub Peripheral Pulses: positive: 1+ Abdomen: positive: Other (Mild global distention, positive fluid wave. Left side of abdomen feels harrell than right side. Normal bowel sounds.). negative: Guarding, Rebound Skin: positive: Warm, Dry Extremities: positive: Non-tender, Full ROM, No pedal edema Neurologic/Psychiatric: positive: Oriented x3, CN's nml (2-12), Motor nml. negative: Slurred/abnml speech, Depressed mood/affect Conclusion/Plan - Problem List (1) Fever and chills Conclusion/Plan: This gentleman has a significant comorbidity of adenocarcinoma, carcinomatosis, malignant ascites. He has a constant cough that strike, nonproductive. Low- grade fever over the last day. The rest of his review of systems is negative for source of infection. Venous Doppler is negative for DVT, chest x-ray has interval bibasilar opacities and small effusions that were new from August 26. Paracentesis shows an elevated white cell count. But a nonacute abdomen on physical exam. As such, we will treat for 2 sources of infection. Plan: Inpatient admission Rocephin has already been given in the emergency room Adjust antibiotics on the basis of both blood and ascites fluid culture Have a low threshold for requiring transfer to higher level of care in this very medically complicated gentleman who wants everything done (2) Chronic anemia Conclusion/Plan: Multiple causes in this gentleman. Ongoing chemotherapy, iron deficiency anemia, tumor burden. Plan: Check hemoglobin and hematocrit daily Transfuse if less than 7 Verify with oncology if he is on Procrit, he is on Neulasta with his chemo (3) Ascites Conclusion/Plan: Paracentesis done in the ER in addition to the 8 L done 4 days prior to admission. Watch for hypotension. Hopefully he will not need another paracentesis while here Qualifiers: Ascites type: malignant Qualified Code(s): R18.0 - Malignant ascites (4) Atrial fibrillation with controlled ventricular response Conclusion/Plan: Recent diagnosis of atrial fibrillation resulted in beta-feliz treatment that combined the therapy of rate lowering as well as his portal hypertension. While at [facility] he was started on amiodarone but does not remember the pill dose. That will have to be verified by pharmacy. Last EKG was August 26 and was a junctional rhythm. Echocardiogram September 10 showed left ventricular systolic function with an ejection fraction of 60-65%. Mild right ventricular enlargement. Mild increase in left atrial volume index. Mild right atrial enlargement. Mild mitral regurgitation. Mildly abnormal right heart pressures. (5) Adenocarcinoma of pancreas, stage 4 Conclusion/Plan: With diffuse carcinomatosis and malignant ascites. Advanced care planning conversation dictated under separate note Medical ambulatory clinic oncology notes have been reviewed. Most recent note was September 21, 2018. "Metastatic pancreatic, recently progressed. He has not had chemo for about a month. We will restart chemo, and he would like to wait for a week since he is still quite weak and tired.". Follow-up was to be in 3 weeks. A stat paracentesis was done for relief of symptoms on the day. Hemoglobin is stable and he is to get a CBC checked with a type and cross in a week before starting his next cycle of chemotherapy. Adenocarcinoma - Lab Results Fish Bones: 09/28/18 12:20 09/28/18 12:20 - Diagnostic Imaging Results Diagnostic Imaging Results Comments: EXAM DATE: 09/28/2018 02:01 PM. CLINICAL HISTORY: Chest pain left sided. COMPARISON: CHEST 1 VIEW 08/26/2018 11:55 AM. TECHNIQUE: 2 views. FINDINGS: Lungs/Pleura: Interval development of bibasilar linear opacities, atelectasis versus airspace disease. Interval development of small bilateral pleural effusions right greater than left. No pneumothorax. Mediastinum: Heart and mediastinal contours are unremarkable. Other: Port is unchanged in configuration. Evidence of glue embolization in the gastric variceal distribution is again seen. IMPRESSION: Interval bibasilar opacities and small effusions. LEFT LOWER EXTREMITY VENOUS ULTRASOUND EXAM DATE: 09/28/2018 03:34 PM. CLINICAL HISTORY: Left calf pain and tenderness. COMPARISON: 09/28/2018 3:32 PM. TECHNIQUE: Real-time sonographic vascular imaging was performed by the instructor trainer canine service through the lower extremity utilizing both color-flow and Doppler spectral analysis. Multiple new accounts representative static images were saved for review. FINDINGS: Common Femoral Vein (CFV): Normal. CFV-GSV Junction: Normal. Profunda Femoral Vein (PFV): Normal. Femoral Vein (FV) Prox: Normal. Femoral Vein (FV) Mid: Normal. Femoral Vein (FV) Dist: Normal. Popliteal Vein: Normal. Posterior Tibial Veins: Normal. Peroneal Veins: Normal. IMPRESSION: No evidence for deep venous thrombosis. EXAM: Abdominal Paracentesis DATE: 09/24/2018 1:55 PM CLINICAL HISTORY: PANCREATIC CANCER COMPARISON: 12/02/2017 FINDINGS: Following obtaining informed consent, a suitable site in the patient's right lower abdomen was selected with ultrasound. The skin was prepped and draped in the usual sterile fashion. The skin and soft tissues were anesthetized with buffered lidocaine. A Safetycentesis catheter was inserted into the peritoneal cavity, and approximately 7 liters of fluid were removed without difficulty. The patient tolerated the procedure well. No immediate complications. IMPRESSION: Successful ultrasound-guided paracentesis, yielding approximately 7 L of fluid. - EKG Results EKG Interpreted Independently: No Core Measures - Anticipated LOS I expect patient to be DC'd or transferred within 96 hours.: Yes - DVT/VTE - Prophylaxis VTE/DVT Device ordered at admit?: Yes
[2018-09-28] MEDS: DOCUSATE SODIUM 250 MG CAPSULE PO SCH (20:06)
[2018-09-28] MEDS: SENNA 8.6 MG TABLET PO SCH (20:06)
[2018-09-28] MEDS: GABAPENTIN 300 MG CAPSULE PO SCH (20:11)
[2018-09-28] MEDS: PANTOPRAZOLE 40 MG TABLET PO SCH (20:11)
[2018-09-28] MEDS: SODIUM CHLORIDE FLUSH 0.9% 10 ML SYRINGE IVP SCH (23:52)
[2018-09-28] MEDS: LORazepam 1 MG TABLET PO PRN (23:56)
[2018-09-29] MEDS: CEFEPIME 2 GM in SODIUM CHLORIDE 0.9% MINIBAG 100 ML IV SCH ×3 (02:34→21:08)
[2018-09-29] MEDS: SODIUM CHLORIDE FLUSH 0.9% 10 ML SYRINGE IVP PRN ×3 (02:36→21:55)
[2018-09-29] MEDS: guaiFENesin/CODEINE 5 ML UDC PO PRN ×3 (05:08→23:09)
[2018-09-29] MEDS: PANTOPRAZOLE 40 MG TABLET PO SCH (05:30)
[2018-09-29] MEDS: POLYETHYLENE GLYCOL 3350 17 GM PACKET PO SCH (09:06)
[2018-09-29] MEDS: SODIUM CHLORIDE FLUSH 0.9% 10 ML SYRINGE IVP SCH ×2 (09:06→19:40)
[2018-09-29] MEDS: diltiaZEM CD 120 MG CAPSULE PO SCH (09:06)
[2018-09-29] MEDS: NADOLOL 20 MG TABLET PO SCH (09:06)
--- NOTE | 2018-09-29 11:39 | PROVIDER PROGRESS NOTE ---
Subjective - Prog Note Date Prog Note Date: 09/29/18 Prog Note Time: 11:43 - Subjective Pt reports feeling: Improved Subjective: Overnight, there were no fever, no chills. However his blood cultures came back with gram-negative rods. He continues to have a chronic daily nonproductive cough. Is taking Robitussin for that. Current Medications - Current Medications Current Medications: Active Medications Acetaminophen (Tylenol) 650 mg PO Q4HR PRN PRN Reason: Pain 1 to 4 Amiodarone HCl (Pacerone) 400 mg PO DAILY [facility] Diltiazem HCl (Cardizem Cd) 120 mg PO DAILY [facility] Last Admin: 09/29/18 09:06 Dose: 120 mg Docusate Sodium (Colace 250mg Capsule) 250 mg PO DAILY@1200 [facility] Last Admin: 09/28/18 20:06 Dose: Not Given Gabapentin (Neurontin) 300 mg PO QPM [facility] Last Admin: 09/28/18 20:11 Dose: 300 mg Guaifenesin/Codeine Phosphate (Robitussin Ac) 5 ml PO Q6HR PRN PRN Reason: Cough Last Admin: 09/29/18 05:08 Dose: 5 ml Cefepime HCl 2 gm/ Sodium (Chloride) 100 mls @ 200 mls/hr IV BID [facility] Last Infusion: 09/29/18 09:40 Dose: Infused Lorazepam (Ativan) 1 mg PO TID PRN PRN Reason: Anxiety Last Admin: 09/28/18 23:56 Dose: 1 mg Nadolol (Corgard) 20 mg PO DAILY [facility] Last Admin: 09/29/18 09:06 Dose: 20 mg Ondansetron HCl (Zofran Inj) 4 mg IVP Q6HR PRN PRN Reason: Nausea / Vomiting Ondansetron HCl (Zofran Odt) 4 mg TL Q6HR PRN PRN Reason: Nausea / Vomiting Oxycodone HCl (Roxicodone) 5 mg PO Q4HR PRN PRN Reason: Pain 5 to 7 Pantoprazole Sodium (Protonix) 40 mg PO QDAC [facility] Last Admin: 09/29/18 05:30 Dose: 40 mg Polyethylene Glycol (Miralax) 17 gm PO DAILY [facility] Last Admin: 09/29/18 09:06 Dose: Not Given Senna (Senokot) 17.2 mg PO DAILY@1200 [facility] Last Admin: 09/28/18 20:06 Dose: Not Given Sodium Chloride (Normal Saline Flush 0.9%) 10 ml IVP PRN PRN PRN Reason: NEEDED PER PROVIDER ORDERS Last Admin: 09/29/18 02:36 Dose: 10 ml Sodium Chloride (Normal Saline Flush 0.9%) 10 ml IVP 0100,0900,1700 [facility] Last Admin: 09/29/18 09:06 Dose: 10 ml diltiaZEM CD [Cardizem Cd] 120 mg PO DAILY 12/31/15 Prochlorperazine Maleate [Compazine] 10 mg PO Q6H PRN 03/06/17 Gabapentin [Neurontin] 1 tab ORAL QPM 06/09/17 Loratadine [Claritin] 10 mg PO DAILY 07/07/17 Bisacodyl [Dulcolax] 10 mg PO DAILY 09/15/17 Omeprazole 40 mg PO BID 09/15/17 Nadolol 1 tab PO DAILY 02/02/18 Amiodarone [Pacerone] 400 mg PO DAILY 09/28/18 Objective - Vital Signs/Intake & Output Reviewed Vital Signs: Yes Vital Signs: Vital Signs x48h Temp Pulse Resp BP Pulse Ox 09/29/18 07:42 36.8 C 64 20 100/64 93 09/29/18 05:12 37.6 C H 63 18 105/67 95 Intake & Output: Intake & Output 09/26/18 09/27/18 09/28/18 09/29/18 23:59 23:59 23:59 23:59 Intake Total 600 1300 Output Total 3200 800 Balance -2600 500 - Objective General Appearance: positive: No acute distress, Alert Eyes Bilateral: positive: PERRL, EOMI ENT: positive: Pharynx nml. negative: Pharyngeal erythema, Oral lesions Neck: positive: No JVD. negative: Stiff neck, Carotid bruit Respiratory: positive: Chest non-tender, No respiratory distress, Rales, Other (Intermittent dry cough during my exam) Cardiovascular: positive: Regular rate & rhythm, No murmur. negative: Gallop/S4, Friction rub Abdomen: positive: Non-tender, No organomegaly, Nml bowel sounds, No distention. negative: Guarding, Rebound Skin: positive: Warm, Dry Extremities: positive: Full ROM, No pedal edema Neurologic/Psychiatric: positive: Oriented x3, CN's nml (2-12), Motor nml. negative: Slurred/abnml speech, Depressed mood/affect - Lab Results Fish Bones: 09/28/18 12:20 09/28/18 12:20 Other Labs: Lab Results x24hrs 09/28/18 09/28/18 09/28/18 Range/Units 14:47 14:29 12:20 WBC (4.8-10.8) x10^3/uL RBC (4.70-6.10) 10^6/uL Hgb (14.0-18.0) g/dL Hct (42.0-52.0) % MCV (80.0-94.0) fL MCH (27.0-31.0) pg MCHC (32.0-36.0) g/dL RDW (12.0-15.0) % Plt Count (130-450) 10^3/uL MPV (7.4-11.4) fL Neut # (Auto) (1.5-6.6) 10^3/uL Lymph # (Auto) (1.5-3.5) 10^3/uL Sierra # (Auto) (0.0-1.0) 10^3/uL Eos # (Auto) (0.0-0.7) 10^3/uL Baso # (Auto) (0.0-0.1) 10^3/uL Absolute Nucleated RBC x10^3/uL Nucleated RBC % /100WBC Sodium (135-145) mmol/L Potassium (3.5-5.0) mmol/L Chloride (101-111) mmol/L Carbon Dioxide (21-32) mmol/L Anion Gap (6-13) BUN (6-20) mg/dL Creatinine (0.6-1.2) mg/dL Estimated GFR (MDRD) (>89) Glucose (70-100) mg/dL Lactic Acid (0.5-2.2) mmol/L Calcium (8.5-10.3) mg/dL Total Bilirubin (0.2-1.0) mg/dL AST (10-42) IU/L ALT (10-60) IU/L Alkaline Phosphatase (42-121) IU/L Total Protein (6.7-8.2) g/dL Albumin (3.2-5.5) g/dL Globulin (2.1-4.2) g/dL Albumin/Globulin Ratio (1.0-2.2) Lipase (22-51) U/L Urine Color YELLOW Urine Clarity CLEAR (CLEAR) Urine pH 6.5 (5.0-7.5) PH Ur Specific Fidelity 1.015 (1.002-1.030) Urine Protein NEGATIVE (NEGATIVE) mg/dL Urine Glucose (UA) NEGATIVE (NEGATIVE) mg/dL Urine Ketones NEGATIVE (NEGATIVE) mg/dL Urine Occult Blood SMALL H (NEGATIVE) Urine Nitrite NEGATIVE (NEGATIVE) Urine Bilirubin NEGATIVE (NEGATIVE) Urine Urobilinogen 0.2 (NORMAL) (NORMAL) E.U./dL Ur Leukocyte Esterase NEGATIVE (NEGATIVE) Urine RBC 0-5 (0-5) /HPF Urine WBC 0-3 (0-3) /HPF Ur Squamous Epith Cells RARE Squamous (<= Few) Urine Bacteria Rare (None Seen) /HPF Ur Microscopic Review INDICATED Urine Culture Comments NOT INDICATED Fluid Source PERITONEAL Fluid Color YELLOW Fluid Clarity CLOUDY Fluid WBC 159 /mm^3 Fluid RBC 1011 /mm^3 Fluid Neutrophils % 18 % Fluid Lymphocytes % 10 Fluid Monocytes % 10 % Fluid Macrophages % 62 % Fld Mesothelial Cell % 0 % Influenza A (Rapid) Negative (Negative) Influenza B (Rapid) Negative (Negative) 09/28/18 09/28/18 09/28/18 Range/Units 12:20 12:20 12:20 WBC 8.6 (4.8-10.8) x10^3/uL RBC 2.96 L (4.70-6.10) 10^6/uL Hgb 8.7 L (14.0-18.0) g/dL Hct 26.1 L (42.0-52.0) % MCV 88.0 (80.0-94.0) fL MCH 29.3 (27.0-31.0) pg MCHC 33.3 (32.0-36.0) g/dL RDW 18.2 H (12.0-15.0) % Plt Count 118 L (130-450) 10^3/uL MPV 9.5 (7.4-11.4) fL Neut # (Auto) 7.7 H (1.5-6.6) 10^3/uL Lymph # (Auto) 0.2 L (1.5-3.5) 10^3/uL Sierra # (Auto) 0.6 (0.0-1.0) 10^3/uL Eos # (Auto) 0.0 (0.0-0.7) 10^3/uL Baso # (Auto) 0.0 (0.0-0.1) 10^3/uL Absolute Nucleated RBC 0.00 x10^3/uL Nucleated RBC % 0.0 /100WBC Sodium 133 L (135-145) mmol/L Potassium 4.2 (3.5-5.0) mmol/L Chloride 103 (101-111) mmol/L Carbon Dioxide 23 (21-32) mmol/L Anion Gap 7.0 (6-13) BUN 16 (6-20) mg/dL Creatinine 0.8 (0.6-1.2) mg/dL Estimated GFR (MDRD) 96 (>89) Glucose 129 H (70-100) mg/dL Lactic Acid 1.5 (0.5-2.2) mmol/L Calcium 8.9 (8.5-10.3) mg/dL Total Bilirubin 1.0 (0.2-1.0) mg/dL AST 32 (10-42) IU/L ALT 10 (10-60) IU/L Alkaline Phosphatase 142 H (42-121) IU/L Total Protein 6.1 L (6.7-8.2) g/dL Albumin 2.6 L (3.2-5.5) g/dL Globulin 3.5 (2.1-4.2) g/dL Albumin/Globulin Ratio 0.7 L (1.0-2.2) Lipase 20 L (22-51) U/L Urine Color Urine Clarity (CLEAR) Urine pH (5.0-7.5) PH Ur Specific Fidelity (1.002-1.030) Urine Protein (NEGATIVE) mg/dL Urine Glucose (UA) (NEGATIVE) mg/dL Urine Ketones (NEGATIVE) mg/dL Urine Occult Blood (NEGATIVE) Urine Nitrite (NEGATIVE) Urine Bilirubin (NEGATIVE) Urine Urobilinogen (NORMAL) E.U./dL Ur Leukocyte Esterase (NEGATIVE) Urine RBC (0-5) /HPF Urine WBC (0-3) /HPF Ur Squamous Epith Cells (<= Few) Urine Bacteria (None Seen) /HPF Ur Microscopic Review Urine Culture Comments Fluid Source Fluid Color Fluid Clarity Fluid WBC /mm^3 Fluid RBC /mm^3 Fluid Neutrophils % % Fluid Lymphocytes % Fluid Monocytes % % Fluid Macrophages % % Fld Mesothelial Cell % % Influenza A (Rapid) (Negative) Influenza B (Rapid) (Negative) ABX Reporting Has patient been on IV antibiotics over the past 48 hours?: Yes Assessment/Plan - Problem List (1) Gram-negative bacteremia Impression: This gentleman has a significant comorbidity of adenocarcinoma, carcinomatosis, malignant ascites. He has a constant cough that strike, nonproductive. Low- grade fever over the last day. The rest of his review of systems is negative for source of infection. Venous Doppler is negative for DVT, chest x-ray has interval bibasilar opacities and small effusions that were new from August 26. Paracentesis shows an elevated white cell count. But a nonacute abdomen on physical exam. As such, we will treat for 2 sources of infection. Plan: Inpatient admission Rocephin has already been given in the emergency room, s/p 1 dose Cefipime added overnight after blood cultures came back (+). Day #1 Adjust antibiotics on the basis of both blood and ascites fluid culture. I have left a message for the ID physician who took care of him at , [facility] but she is out of the office. Dr. Washington who is banquet houseperson for her will call me back according to the help desk rep @ [phone] Have a low threshold for requiring transfer to higher level of care in this very medically complicated gentleman who wants everything done (2) Chronic anemia Conclusion/Plan: Multiple causes in this gentleman. Ongoing chemotherapy, iron deficiency anemia, tumor burden. Plan: Check hemoglobin and hematocrit daily Transfuse if less than 7, and today's results not ready yet. will review. Verify with oncology if he is on Procrit, he is on Neulasta with his chemo (3) Ascites Conclusion/Plan: Paracentesis done in the ER in addition to the 8 L done 4 days prior to admission. Watch for hypotension. Hopefully he will not need another paracentesis while here. Blood pressure has been 99-117 systolic/ 54-67 diastolic Qualifiers: Ascites type: malignant Qualified Code(s): R18.0 - Malignant ascites (4) Atrial fibrillation with controlled ventricular response Conclusion/Plan: Recent diagnosis of atrial fibrillation resulted in beta-feliz treatment that combined the therapy of rate lowering as well as his portal hypertension. While at [facility] he was started on amiodarone but does not remember the pill dose. That will have to be verified by pharmacy. Last EKG was August 26 and was a junctional rhythm. Echocardiogram September 10 showed left ventricular systolic function with an ejection fraction of 60-65%. Mild right ventricular enlargement. Mild increase in left atrial volume index. Mild right atrial enla rgement. Mild mitral regurgitation. Mildly abnormal right heart pressures.Pharmacy verified that it is 400 mg a day of amiodarone and that will be started today. (5) Adenocarcinoma of pancreas, stage 4 Conclusion/Plan: With diffuse carcinomatosis and malignant ascites. Advanced care planning conversation dictated under separate note Medical ambulatory clinic oncology notes have been reviewed. Most recent note was September 21, 2018. "Metastatic pancreatic, recently progressed. He has not had chemo for about a month. We will restart chemo, and he would like to wait for a week since he is still quite weak and tired.". Follow-up was to be in 3 weeks. A stat paracentesis was done for relief of symptoms on the day. Hemoglobin is stable and he is to get a CBC checked with a type and cross in a week before starting his next cycle of chemotherapy. (3) Ascites Qualifiers: Qualified Code(s): R18.0 - Malignant ascites
--- NOTE | 2018-09-29 11:50 | ADVANCE CARE PLANNING NOTE ---
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 He is still driving, independent with all activities of daily living, walks 1-3 miles a day, pays bills, and cooks for he and his - Objective/Medical story Objective/Medical Story: This unfortunate gentleman has metastatic pancreatic adenocarcinoma with peritoneal carcinomatosis and malignant ascites. He has managed to survive 20 months since diagnosis. He was on Abraxane and Gemzar until August 2017. Then he was on modified FOLFOX6 since August 2017 until August 26, 2018. He presented to our ER here with fever, anemia, hypotension on August 26. He was found to have sepsis, GI bleeding from esophageal varices.He is intubated, a Sengstaken-Stone tube placed, and urgently transferred to [facility]. He had known portal hypertension from his tumor and had already been transfused and biliary stent 08/10/18. It is not alcoholic liver disease. While at [facility] he received IV antibiotics, transfusion, ligation of esophageal varices, and restent for the biliary obstruction and continued treatment of portal hypertension. He was also treated for newly diagnosed atrial fibrillation. He was sent home ~09/08/18 on IV antibiotics and finished them approximately September 15. He has been doing well. This gentleman still walks anywhere from 1-3 miles a day. Eats the food is put in front of him. Considers himself to have an excellent quality of life with ability to complete his activities of daily living without any assist whatsoever. He started having low-grade fevers yesterday. This was associated with left calf pain. He was afraid that it was a DVT in his leg and he came to the emergency room. There is no chest pain, shortness of breath. But he has a chronic daily, nonproductive cough that is new. No abdominal pain. No change in bowel habits. No urgency frequency dysuria. In the emergency room he was bradycardic to the 40s because of his propranolol. Afebrile at 36.8. Thin, tanned middle-aged male with slight abdominal distention from his ascites. In evaluating the patient, his left calf pain was not a problem. His venous Dopplers were negative and there is no cellulitis. But because he had an elevated white cell count, low-grade fever, the emergency room physician wanted to broaden the investigation for potential sources of significant infection. He had blood cultures done, chest x-ray done, and a paracentesis. His last paracentesis was 4 days previously. The paracentesis showed a white cell count of 150 with the threshold for concern being above 100. A long discussion was held in the emergency room about his wishes. We are a critical [facility] and we do not have gastroenterology, vascular surgery, infectious disease, or oncology. He has made it very clear that he wants everything possible done, including extraordinary measures, to keep him alive. With his high level of care needs in the past, this may not be the best place for him. However, after considering this, my blunt statements to the effect that we do not have specialty services here, he still wanted to be admitted here. - Goals of Care Goals of care determinations: He started having abdominal pain in the spring 2016. He was seen in the emergency room on February 01, 2027 for his abdominal pain after not responding to proton pump inhibitors. A CT of the abdomen and pelvis done at that ER visit showed him to have a large pancreatic head/neck cancer. Obstruction of the common bile duct. He was transferred to [facility] under the care of Dr. Holley. Since that time he is establish care with Dr. Renee Red and he had already had a biliary stent placed, and started on Gemzar. Since then he has been on Gemzar and Abraxane. That finished in August 2017. He had disease progression and second line therapy with FOLFOX 6 was started August 2017. He has been getting anywhere from weekly to monthly paracentesis. He then developed GI bleeding and was diagnosed as having gastroesophageal varices from tumor burden not from alcoholic liver disease. For a while, his hemoglobin was stable. He was no longer needing paracentesis for malignant ascites. He then began having black tarry stools July 20. Chemotherapy was being held. The GI bleed was treated. He was evaluated August 24 to see if he needed to continue his chemotherapy and received another cycle. He then presented to the emergency room 2 days later on August 26. His is very very angry. She states that he got chemotherapy too early. She feels that that is why he got sick with sepsis, GI bleed, and needed transferred to [facility]. He is noted to have recurrent malignant ascites and his paracentesis has now continued again. With numerous visits to [facility], this emergency room, they have had multiple encounters with the healthcare system. His particularly is unhappy at the way the system works. She finds it frustrating that she has to bring him to the waiting room and sit in the waiting room for an hour before he is evaluated. She finds it frustrating how the MANAGER ELIGIBILITY has manage this hospital with regards to the pharmacy and the use of resources. She berates me for the reputation this hospital has. She is unhappy with how many providers he is encountered and how many times they have to repeat their story. Throughout this, the patient himself places a reassuring hand on his 's arm and keeps on stating to her quietly "it is okay, it is okay". She is not happy at my request for them to evaluate staying here. We are a critical [facility] and do not have specialty backup. This gentleman has had life-threatening acute presentations of complications of his disease status. He is still of the mind to do "everything". He describes a quality of life that is very acceptable to he and his . They have traveled, celebrated birthdays. He still walks 1-3 miles a day. He does the cooking in the house. He has had no mental cognitive delays because of treatment. His then becomes angry at my questioning of his baseline status. She is angry that we even asked this question. She does not understand why I would ask this. When I explained that we sometimes verify functional status to see what home needs may present themselves, she is not satisfied. I explained that sometimes people need durable medical goods such as a wheelchair, Serge lift, or any other items. We usually like to establish those needs early in the acute episode of care so that we can have those ready at discharge. She is angry and states that we should never ask these questions at the beginning of the encounter and establish whether he needs help only on the day of discharge. She then becomes angry because her is hungry. It is in the late evening when our nutrition services are shut down for the night. We offer him a sandwich and this becomes a source of unhappiness for her as well. "What kind of hospital are you that you can even feed your patients full meals". In this encounter, I was able to verify his needs. He feels like he has done spectacularly well considering his terminal diagnosis. That his quality of life is quite good. He and his have never discussed at what point he would stop therapy. I asked him to fill in the blank if you would ask the question "I will stop therapy if I can no longer " . While they have discussed the inevitability of his , these conversations happened at the beginning of his diagnosis when his prognosis was so grim. They have had hope and feel gratified that he is managed to live 20 months. They just want to keep on doing what they are doing for as long as they can. - Plan Plan: Continue ongoing chemotherapy as well as any other life-saving measures. He wants all measures done to him to keep him alive for as long as possible. Only when he is brain , intubated, on life support, can we consider stopping treatment. Even then his would be the one to decide to take him off life support. I have asked them to fill out a POLST form. We want to make sure that his wishes for full code and all treatments be honored. I have also respectfully asked them to consider at what point he may want to slow down therapy or stop therapy. If he could fill in the blank for my above question. That is a conversation that is slow, requires thoughtful deliberation, and should be held between the 2 of them so that she can honor his wishes when the time comes. Today is only a beginning conversation. Hopefully they can continue the conversation with their oncologist or primary care provider as time goes on. - Code Status Code Status: Attempt Resuscitation - Time Spent on Advance Care Planning Time spent on advance care plannin
[2018-09-29] MEDS: AMIODARONE 200 MG TABLET PO SCH (11:59)
[2018-09-29] MEDS: DOCUSATE SODIUM 250 MG CAPSULE PO SCH (11:59)
[2018-09-29] MEDS: SENNA 8.6 MG TABLET PO SCH ×2 (11:59→19:40)
[2018-09-29 13:40] LABS: BASOPHILS % (AUTO) 0.7 %; EOSINOPHILS # (AUTO) 0.1 10^3/uL (0.0-0.7); EOSINOPHILS % (AUTO) 1.6 %; HGB - HEMOGLOBIN 8.6 g/dL (14.0-18.0); LYMPHOCYTES # (AUTO) 0.4 10^3/uL (1.5-3.5); LYMPHOCYTES % (AUTO) 7.9 %; MEAN CORPUSCULAR HEMOGLOBIN 28.7 pg (27.0-31.0); MEAN CORPUSCULAR HGB CONC 32.6 g/dL (32.0-36.0); MEAN CORPUSCULAR VOLUME 88.1 fL (80.0-94.0); MEAN PLATELET VOLUME 9.7 fL (7.4-11.4); MONOCYTES # (AUTO) 0.8 10^3/uL (0.0-1.0); MONOCYTES % (AUTO) 15.3 %; NEUTROPHILS # (AUTO) 4.1 10^3/uL (1.5-6.6); NEUTROPHILS % (AUTO) 74.5 %; PLT - PLATELET COUNT 116 10^3/uL (130-450); RED BLOOD COUNT 2.99 10^6/uL (4.70-6.10); RED CELL DISTRIBUTION WIDTH 17.8 % (12.0-15.0); WHITE BLOOD COUNT 5.5 x10^3/uL (4.8-10.8)
[2018-09-29 13:41] LABS: CALCIUM 8.4 mg/dL (8.5-10.3); CREATININE 0.8 mg/dL (0.6-1.2)
[2018-09-29 14:30] LABS: PLATELET ESTIMATE, MANUAL DECREASED (<130,000) (NORMAL); PLATELET MORPHOLOGY NORMAL APPEARANCE (NORMAL); RBC MORPHOLOGY (MULTIPLE) 1+ HYPOCHROMASIA (NORMAL)
[2018-09-29] MEDS ORDERED: IOPAMIDOL-300 100 ML VIAL IVP ONE (19:09)
[2018-09-29] MEDS ORDERED: IOPAMIDOL-300 50 ML VIAL PO ONE (19:13)
--- NOTE | 2018-09-29 19:38 | CT Report ---
Reason: GNR bacteremia Procedure Date: 09/29/2018 Accession Number: [id number] / [id number] Procedure: CT - Abdomen/Pelvis W/ CPT Code: FULL RESULT: EXAM: CT ABDOMEN AND PELVIS EXAM DATE: 09/29/2018 07:08 PM. CLINICAL HISTORY: Gram-negative rupesh bacteremia. COMPARISONS: ABDOMEN/PELVIS W/ 08/12/2018 9:21 PM. TECHNIQUE: Routine helical CT imaging was performed through the abdomen and pelvis. IV contrast: 100 cc of Isovue-300. Enteric contrast: Yes. Reconstructions: Coronal and sagittal. In accordance with CT protocol optimization, one or more of the following dose reduction techniques were utilized for this exam: automated exposure control, adjustment of mA and/or KV based on patient size, or use of iterative reconstructive technique. FINDINGS: Lung Bases: Tiny left and small right pleural effusion with right base atelectasis/infiltrate. Esophageal varices. Liver: Pneumobilia and small cysts again noted. Lobular liver with left lobe atrophy. Gallbladder/Bile Ducts: Gallbladder wall thickening. No calcified gallstones. Common bile duct stent in place. Spleen: Enlarged. Pancreas: Poorly defined roughly 4 cm low density in the region of the head/body of the pancreas compatible with pancreatic mass obliterating tissue planes and encasing the occluded portal confluence as before, with surrounding collaterals and shunts. Adrenal Glands: Normal. Kidneys: Normal. No masses or hydronephrosis. Peritoneal Cavity/Bowel: Serpiginous densities in the occluded gastric and esophageal varices. Moderate ascites, worse than prior. No free air or adenopathy. No masses or acute inflammatory process. The appendix is well visualized and normal. Pelvic Organs: Normal. The bladder and visualized pelvic organs are within normal limits. Vasculature: No aneurysms or other significant abnormality. Bones: S-shaped scoliosis. Other: Body wall edema. IMPRESSION: 1. Tiny left and small right pleural effusion with right base atelectasis/infiltrate. 2. Worsening ascites. 3. Ill-defined pancreatic mass with chronic occlusion of the portal confluence and numerous surrounding shunts, noting serpiginous densities compatible with occlusion of gastric and esophageal varices. 4. Thick-walled gallbladder, which may be secondary to ascites or represent cholecystitis. 5. Anasarca. RADIA
[2018-09-29] MEDS: GABAPENTIN 300 MG CAPSULE PO SCH (21:08)
[2018-09-29] MEDS: LORazepam 1 MG TABLET PO PRN (23:09)
[2018-09-30] MEDS: SODIUM CHLORIDE FLUSH 0.9% 10 ML SYRINGE IVP SCH ×3 (01:19→17:15)
[2018-09-30] MEDS: SODIUM CHLORIDE FLUSH 0.9% 10 ML SYRINGE IVP PRN ×2 (04:34→20:43)
[2018-09-30] MEDS ORDERED: SODIUM CHLORIDE FLUSH 0.9% 10 ML SYRINGE IVP PRN (04:35)
[2018-09-30 04:58] LABS: BASOPHILS % (AUTO) 0.7 %; EOSINOPHILS # (AUTO) 0.1 10^3/uL (0.0-0.7); HGB - HEMOGLOBIN 8.6 g/dL (14.0-18.0); LYMPHOCYTES # (AUTO) 0.4 10^3/uL (1.5-3.5); LYMPHOCYTES % (AUTO) 8.7 %; MEAN CORPUSCULAR HEMOGLOBIN 28.6 pg (27.0-31.0); MEAN CORPUSCULAR HGB CONC 32.4 g/dL (32.0-36.0); MEAN CORPUSCULAR VOLUME 88.3 fL (80.0-94.0); MEAN PLATELET VOLUME 10.3 fL (7.4-11.4); MONOCYTES # (AUTO) 0.5 10^3/uL (0.0-1.0); MONOCYTES % (AUTO) 11.8 %; NEUTROPHILS # (AUTO) 3.3 10^3/uL (1.5-6.6); NEUTROPHILS % (AUTO) 76.8 %; PLT - PLATELET COUNT 118 10^3/uL (130-450); RED BLOOD COUNT 3.01 10^6/uL (4.70-6.10); RED CELL DISTRIBUTION WIDTH 17.8 % (12.0-15.0); WHITE BLOOD COUNT 4.4 x10^3/uL (4.8-10.8)
[2018-09-30 05:31] LABS: CALCIUM 8.9 mg/dL (8.5-10.3); CREATININE 0.7 mg/dL (0.6-1.2)
[2018-09-30] MEDS: PANTOPRAZOLE 40 MG TABLET PO SCH (06:15)
[2018-09-30] MEDS: AMIODARONE 200 MG TABLET PO SCH (08:16)
[2018-09-30] MEDS: NADOLOL 20 MG TABLET PO SCH (08:16)
[2018-09-30] MEDS: CEFEPIME 2 GM in SODIUM CHLORIDE 0.9% MINIBAG 100 ML IV SCH ×2 (08:16→20:42)
[2018-09-30] MEDS: POLYETHYLENE GLYCOL 3350 17 GM PACKET PO SCH (08:16)
[2018-09-30] MEDS: diltiaZEM CD 120 MG CAPSULE PO SCH (08:16)
[2018-09-30] MEDS: SENNA 8.6 MG TABLET PO SCH ×2 (13:44→17:17)
[2018-09-30] MEDS: DOCUSATE SODIUM 250 MG CAPSULE PO SCH (13:44)
--- NOTE | 2018-09-30 18:51 | PROVIDER PROGRESS NOTE ---
Subjective - Prog Note Date Prog Note Date: 09/30/18 Prog Note Time: 18:55 - Subjective Pt reports feeling: No change Subjective: The only thing that was symptomatic for him was low-grade fevers and chills. That was the only symptom he had of the left calf pain where he feared a DVT. Now that he has had IV fluids, IV antibiotics, the fever and chills are gone away. But he feels no different. He is eating. Ambulating without difficulty. He denies any right upper quadrant pain or epigastric pain. He is apprised at the CT of the abdomen identifies possible chronic cholecystitis. Current Medications - Current Medications Current Medications: Active Medications Acetaminophen (Tylenol) 650 mg PO Q4HR PRN PRN Reason: Pain 1 to 4 Amiodarone HCl (Pacerone) 400 mg PO DAILY [facility] Last Admin: 09/30/18 08:16 Dose: 400 mg Diltiazem HCl (Cardizem Cd) 120 mg PO DAILY [facility] Last Admin: 09/30/18 08:16 Dose: 120 mg Docusate Sodium (Colace 250mg Capsule) 250 mg PO DAILY@1200 [facility] Last Admin: 09/30/18 13:44 Dose: 250 mg Gabapentin (Neurontin) 300 mg PO QPM [facility] Last Admin: 09/29/18 21:08 Dose: 300 mg Guaifenesin/Codeine Phosphate (Robitussin Ac) 5 ml PO Q6HR PRN PRN Reason: Cough Last Admin: 09/29/18 23:09 Dose: 5 ml Heparin Sodium (Beef Lung) () 30 - 50 unit IVP PRN PRN PRN Reason: Port Protocol (<24 hours) Last Admin: 09/30/18 04:34 Dose: 50 unit Cefepime HCl 2 gm/ Sodium (Chloride) 100 mls @ 200 mls/hr IV BID [facility] Last Infusion: 09/30/18 08:46 Dose: Infused Lorazepam (Ativan) 1 mg PO TID PRN PRN Reason: Anxiety Last Admin: 09/29/18 23:09 Dose: 1 mg Nadolol (Corgard) 20 mg PO DAILY [facility] Last Admin: 09/30/18 08:16 Dose: 20 mg Ondansetron HCl (Zofran Inj) 4 mg IVP Q6HR PRN PRN Reason: Nausea / Vomiting Ondansetron HCl (Zofran Odt) 4 mg TL Q6HR PRN PRN Reason: Nausea / Vomiting Oxycodone HCl (Roxicodone) 5 mg PO Q4HR PRN PRN Reason: Pain 5 to 7 Pantoprazole Sodium (Protonix) 40 mg PO QDAC [facility] Last Admin: 09/30/18 06:15 Dose: 40 mg Polyethylene Glycol (Miralax) 17 gm PO DAILY [facility] Last Admin: 09/30/18 08:16 Dose: Not Given Senna (Senokot) 17.2 mg PO DAILY@1200 [facility] Last Admin: 09/30/18 13:44 Dose: 17.2 mg Senna (Senokot) 17.2 - 25.8 mg PO ONCE [facility] Stop: 10/02/18 18:00 Last Admin: 09/30/18 17:17 Dose: Not Given Sodium Chloride (Normal Saline Flush 0.9%) 10 ml IVP PRN PRN PRN Reason: NEEDED PER PROVIDER ORDERS Last Admin: 09/30/18 04:34 Dose: 30 ml Sodium Chloride (Normal Saline Flush 0.9%) 10 ml IVP 0100,0900,1700 [facility] Last Admin: 09/30/18 17:15 Dose: Not Given Sodium Chloride (Normal Saline Flush 0.9%) 20 ml IVP PRN PRN PRN Reason: After Blood Draw diltiaZEM CD [Cardizem Cd] 120 mg PO DAILY 12/31/15 Prochlorperazine Maleate [Compazine] 10 mg PO Q6H PRN 03/06/17 Gabapentin [Neurontin] 300 mg ORAL QPM 06/09/17 Loratadine [Claritin] 10 mg PO DAILY 07/07/17 Bisacodyl [Dulcolax] 10 mg PO DAILY 09/15/17 Omeprazole 40 mg PO BID 09/15/17 Nadolol 20 mg PO DAILY 02/02/18 Amiodarone [Pacerone] 400 mg PO DAILY 09/28/18 Cholecalciferol (Vitamin D3) [Vitamin D3] 1,000 unit PO DAILY 09/29/18 Digestive 8/L.acidoph/Pectin [Digestive Enzymes Tablet] 1 each PO DAILY 09/29/18 L.acid/L.casei/B.bif/B.susan/Fos [Probiotic Blend Capsule] 1 each PO DAILY 09/29/18 Mag O7 3 cap PO DAILY 09/29/18 Phytonadione [Vitamin K] 100 mcg PO DAILY 09/29/18 Senna [Senokot] 8.6 mg PO DAILY 09/29/18 Zinc Gluconate [Zinc] 30 mg PO DAILY 09/29/18 Objective - Vital Signs/Intake & Output Reviewed Vital Signs: Yes Vital Signs: Vital Signs x48h Temp Pulse Resp BP Pulse Ox 09/30/18 15:23 36.9 C 45 L 18 105/60 97 Intake & Output: Intake & Output 09/27/18 09/28/18 09/29/18 09/30/18 23:59 23:59 23:59 23:59 Intake Total 600 3320 720 Output Total 3200 1875 2350 Balance -2600 1445 -1630 - Lab Results Fish Bones: 09/30/18 04:28 09/30/18 04:28 Other Labs: Lab Results x24hrs 09/30/18 09/30/18 Range/Units 04:28 04:28 WBC 4.4 L (4.8-10.8) x10^3/uL RBC 3.01 L (4.70-6.10) 10^6/uL Hgb 8.6 L (14.0-18.0) g/dL Hct 26.6 L (42.0-52.0) % MCV 88.3 (80.0-94.0) fL MCH 28.6 (27.0-31.0) pg MCHC 32.4 (32.0-36.0) g/dL RDW 17.8 H (12.0-15.0) % Plt Count 118 L (130-450) 10^3/uL MPV 10.3 (7.4-11.4) fL Neut # (Auto) 3.3 (1.5-6.6) 10^3/uL Lymph # (Auto) 0.4 L (1.5-3.5) 10^3/uL Craven # (Auto) 0.5 (0.0-1.0) 10^3/uL Eos # (Auto) 0.1 (0.0-0.7) 10^3/uL Baso # (Auto) 0.0 (0.0-0.1) 10^3/uL Absolute Nucleated RBC 0.00 x10^3/uL Nucleated RBC % 0.0 /100WBC Sodium 134 L (135-145) mmol/L Potassium 4.0 (3.5-5.0) mmol/L Chloride 105 (101-111) mmol/L Carbon Dioxide 22 (21-32) mmol/L Anion Gap 7.0 (6-13) BUN 16 (6-20) mg/dL Creatinine 0.7 (0.6-1.2) mg/dL Estimated GFR (MDRD) 112 (>89) Glucose 113 H (70-100) mg/dL Calcium 8.9 (8.5-10.3) mg/dL ABX Reporting Has patient been on IV antibiotics over the past 48 hours?: Yes Assessment/Plan - Problem List (1) E. coli bacteremia Impression: This gentleman has a significant comorbidity of adenocarcinoma, carcinomatosis, malignant ascites. He has a constant cough that strike, nonproductive. Low- grade fever over the last day. The rest of his review of systems is negative for source of infection. Venous Doppler is negative for DVT, chest x-ray has interval bibasilar opacities and small effusions that were new from August 26. Paracentesis shows an elevated white cell count. But a nonacute abdomen on physical exam. As such, we will treat for 2 sources of infection.After speaking to his infectious disease data security consultant, they requested a CT of the abdomen. It shows chronic cholecystitis. So the source of his bacteremia may be the gallbladder. The patient is asymptomatic from this and has no right upper quadrant pain.The ID data security consultant also once daily blood cultures done until he has negative blood cultures. Once he is negative, treatment for bacteremia will be 2 weeks from the date of that negative blood culture Plan: Inpatient admission Rocephin has already been given in the emergency room, s/p 1 dose Cefipime added overnight after blood cultures from admission came back (+). Day #2 Adjust antibiotics on the basis sensitivities of the e coli which should be ready in am. His second day of blood cultures, after abx started, are negative at 24 hours. Have a low threshold for requiring transfer to higher level of care in this very medically complicated gentleman who wants everything done (2) Chronic anemia Conclusion/Plan: Multiple causes in this gentleman. Ongoing chemotherapy, iron deficiency anemia, tumor burden. Plan: Check hemoglobin and hematocrit daily and so far stable. Transfuse if less than 7 Not on Procrit, he is on Neulasta with his chemo (3) Ascites Conclusion/Plan: Paracentesis done in the ER in addition to the 8 L done 4 days prior to admission. Watched for hypotension. Systolic consistently 102-105. Hopefully he will not need another paracentesis while here. Qualifiers: Ascites type: malignant Qualified Code(s): R18.0 - Malignant ascites (4) Atrial fibrillation with controlled ventricular response Conclusion/Plan: Recent diagnosis of atrial fibrillation resulted in beta-feliz treatment that combined the therapy of rate lowering as well as his portal hypertension. While at [facility] he was started on amiodarone but does not remember the pill dose. That was verified by pharmacy. Last EKG was August 26 and was a junctional rhythm. Echocardiogram September 10 showed left ventricular systolic function with an ejection fraction of 60-65%. Mild right ventricular enlarg ement. Mild increase in left atrial volume index. Mild right atrial enlargement. Mild mitral regurgitation. Mildly abnormal right heart pressures.Pharmacy verified that it is 400 mg a day of amiodarone and that was started. (5) Adenocarcinoma of pancreas, stage 4 Conclusion/Plan: With diffuse carcinomatosis and malignant ascites. Advanced care planning conversation dictated under separate note Medical ambulatory clinic oncology notes have been reviewed. Most recent note was September 21, 2018. "Metastatic pancreatic, recently progressed. He has not had chemo for about a month. We will restart chemo, and he would like to wait for a week since he is still quite weak and tired.". Follow-up was to be in 3 weeks. A stat paracentesis was done for relief of symptoms on the day. Hemoglobin is stable and he is to get a CBC checked with a type and cross in a week before starting his next cycle of chemotherapy.
[2018-09-30] MEDS: GABAPENTIN 300 MG CAPSULE PO SCH (20:42)
[2018-09-30] MEDS: guaiFENesin/CODEINE 5 ML UDC PO PRN (20:47)
[2018-09-30] MEDS: LORazepam 1 MG TABLET PO PRN (23:35)
[2018-10-01] MEDS: SODIUM CHLORIDE FLUSH 0.9% 10 ML SYRINGE IVP SCH ×2 (01:22→08:43)
[2018-10-01 05:46] LABS: BASOPHILS % (AUTO) 1.2 %; EOSINOPHILS # (AUTO) 0.1 10^3/uL (0.0-0.7); EOSINOPHILS % (AUTO) 2.5 %; HGB - HEMOGLOBIN 8.4 g/dL (14.0-18.0); LYMPHOCYTES # (AUTO) 0.4 10^3/uL (1.5-3.5); LYMPHOCYTES % (AUTO) 10.5 %; MEAN CORPUSCULAR HEMOGLOBIN 28.5 pg (27.0-31.0); MEAN CORPUSCULAR HGB CONC 32.8 g/dL (32.0-36.0); MEAN PLATELET VOLUME 9.8 fL (7.4-11.4); MONOCYTES # (AUTO) 0.5 10^3/uL (0.0-1.0); MONOCYTES % (AUTO) 13.9 %; NEUTROPHILS # (AUTO) 2.6 10^3/uL (1.5-6.6); NEUTROPHILS % (AUTO) 71.9 %; PLT - PLATELET COUNT 123 10^3/uL (130-450); RED BLOOD COUNT 2.93 10^6/uL (4.70-6.10); RED CELL DISTRIBUTION WIDTH 17.8 % (12.0-15.0); WHITE BLOOD COUNT 3.5 x10^3/uL (4.8-10.8)
[2018-10-01 05:50] LABS: CALCIUM 8.9 mg/dL (8.5-10.3); CREATININE 0.6 mg/dL (0.6-1.2)
[2018-10-01] MEDS: PANTOPRAZOLE 40 MG TABLET PO SCH (06:57)
[2018-10-01 08:27] VITALS: BP 100/47
[2018-10-01] MEDS: AMIODARONE 200 MG TABLET PO SCH (08:43)
[2018-10-01] MEDS: NADOLOL 20 MG TABLET PO SCH (08:43)
[2018-10-01] MEDS: diltiaZEM CD 120 MG CAPSULE PO SCH (08:43)
[2018-10-01] MEDS: CEFEPIME 2 GM in SODIUM CHLORIDE 0.9% MINIBAG 100 ML IV SCH (08:44)
[2018-10-01] MEDS: POLYETHYLENE GLYCOL 3350 17 GM PACKET PO SCH (08:44)
--- NOTE | 2018-10-01 12:03 | Discharge Plan ---
Discharge Plan Disposition: 01 Home, Self Care Condition: Stable Prescriptions: Abdominal Pad 7.5 bandage TOP BID #60 cefTRIAXone [Rocephin 2 gram] 2 gm IV Q24H #12 vial Diet: Regular Activity Restrictions: Activity as Tolerated Shower Restrictions: No Driving Restrictions: No No Smoking: If you smoke, Please STOP! Call for help. Follow-up with: Deanna Simon MD [Primary Care Provider] - Mari Red MD [Physician No Access] -
--- NOTE | 2018-10-02 02:31 | DISCHARGE SUMMARY ---
Physician: Marcella Daniels MD DATE OF ADMISSION: 09/28/2018 DATE OF DISCHARGE: 10/01/2018 DISCHARGE DIAGNOSES 1. Escherichia coli bacteremia. 2. 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 3. Malignant ascites. 4. Chronic atrial fibrillation with controlled ventricular response. 5. Adenocarcinoma of the pancreas stage IV. DISCHARGE MEDICATIONS 1. Amiodarone 400 mg daily. 2. Dulcolax 10 mg daily. 3. Vitamin D 1000 units daily. 4. Probiotics capsule daily. 5. Diltiazem CD 120 mg p.o. daily. 6. Gabapentin 300 mg p.o. q.p.m. 7. Loratadine 10 mg p.o. daily. 8. Magnesium capsules daily. 9. Nadolol 20 mg p.o. daily. 10. Omeprazole 40 mg p.o. b.i.d. 11. Vitamin K 1000 mcg daily. 12. Compazine 10 mg p.o. q.6 h. p.r.n. nausea. 13. Abdominal pad to cover paracentesis leaking site. 14. Ceftriaxone 2 grams IV every 24 hours for the next 12 days. 15. Ativan 1 mg p.o. t.i.d. p.r.n. PRINCIPAL PROCEDURES 1. Paracentesis done in the emergency room. 2. Chest x-ray with interval bibasilar opacities and small effusions. 3. Venous duplex ulcer of left leg without evidence of deep venous thrombosis. 4. Abdomen and pelvis CT with tiny left and small right pleural effusions with right base atelectasis and infiltrate. Worsening ascites since his last abdomen and pelvis CT 08/12/2018. Ill-defined pancreatic mass with chronic occlusion of the portal confluence and numerous surrounding shunts, noting serpiginous densities compatible with occlusion of the gastric and esophageal varices. Thick-walled gallbladder, which may be secondary to ascites or represent cholecystitis. Anasarca. 5. Blood cultures negative after two days on one bottle and Escherichia coli pansensitive to all antibiotics on the second bottle. 6. Ascites fluid is negative, without growth. 7. Blood cultures done on 09/29/2018, after starting antibiotics, were no growth after two days. HOSPITAL COURSE: This gentleman has stage IV pancreatic cancer with malignant ascites and diffuse carcinomatosis. He is still undergoing chemotherapy. He presented to our emergency room 08/26/2018 with fever, anemia and hypotension and had sepsis and gastrointestinal bleeding from esophageal varices. He was intubated and a Sengstaken-Stone tube was placed and he was urgently transferred to [facility]. He received IV antibiotics, transfusion, ligation of esophageal varices, and a re-stent for biliary obstruction and continued to receive treatment for portal hypertension. He was also treated for newly diagnosed atrial fibrillation. He was sent home 09/08/2018 on IV antibiotics and completed them up to approximately 09/15/2018. It was multidrug-resistant Klebsiella. He has been doing well, walks anywhere from 1-3 miles a day. Eats the food put in front of him. Considers himself to have an excellent quality of life with ability to complete his activities of daily living without any assist whatsoever. He started having low-grade fevers yesterday associated with left calf pain. He was afraid that he was having a DVT in his leg, and he came to the emergency room. In the emergency room, he was found to be afebrile at 36.8. He had a distended abdomen from ascites but no severe tenderness. His left calf was not swollen, red, or hot. Venous Dopplers were negative. Because he had an elevated white cell count and low grade fever, the emergency room physician wanted to broaden the investigation for potential sources of significant infection. Blood cultures were done, chest x-ray done, and a paracentesis was done. His last paracentesis was four days previously. The paracentesis showed a white cell count of 150 with a threshold for concern being above 100. He was initially treated as possible spontaneous bacterial peritonitis, but he did not have any abdominal pain during his stay. Blood cultures grew out Escherichia coli. He was initially on cefepime. I spoke to his infectious disease attending that had taken care of him for the multidrug-resistant Klebsiella. She requested that he receive two weeks of IV antibiotic therapy starting the day his blood cultures were negative. Escherichia coli sensitivities eventually came back on his blood cultures, and it was sensitive to everything and, as such, he was switched over to Rocephin 2 grams IV daily. The patient was very comfortable with the idea of going home and getting IV antibiotic therapy. He had already done that for the Klebsiella treatment after leaving [facility]. As such, authorization was obtained for him to get 2 grams IV daily at home for the next 12 days. Atrial fibrillation was controlled. He is still in the midst of getting amiodarone loaded. That was continued during his stay. At discharge, pulse was 55, slow, and actually regular. Chronic anemia was noted. He is on Neulasta when he gets his chemotherapy, but no Procrit. His hemoglobin remained stable during his stay to 8.4-8.6 grams of hemoglobin. White cell count came down to 3.5 on the day of discharge. Platelets are 123. He is felt to have chronic anemia or pancytopenia from chemotherapy and iron deficiency. No transfusions were needed. While he has malignant ascites, he did have 8 liters of paracentesis done four days prior to admission, as well as seven liters again during this admission. We monitored him for signs and symptoms of hypotension. While he did have intermittently low blood pressures of 99/54 or 100/64, he remained stable. At discharge, blood pressure was 100/47. Advanced care discussion was held. Please review the details of that conversation. I was in contact with KANA Leal, from the [facility] clinic. The patient is asked to follow up with his oncologist after he completes his IV antibiotics for the Escherichia coli bacteremia. asked for copies of cell counts and blood culture sensitivities so she could have them to refer to if she needed to speak to the physicians, and those copies were provided to her. PHYSICAL EXAMINATION At the time of discharge: VITAL SIGNS: Temperature is 36.8, pulse 55, blood pressure 100/47, respirations 19 and 93% on room air. GENERAL: He is a lean, lanky, tanned white male in no acute distress. LUNGS: Diminished breath sounds at the bases, but otherwise clear. There are no crackles, rhonchi or wheezing. No increased respiratory effort. PMI is normally placed with a slow regular rate and rhythm. ABDOMEN: Mildly distended with a fluid wave. He has a leaking paracentesis site in the left mid quadrant. They are very anxious about taking care of this. I explained that unfortunately this is a known complication of multiple paracenteses. He had been given bandages to cover. He says he usually needs about two a day, and that prescription was given. EXTREMITIES: Without edema. This gentleman is able to sit up, stand, walk. During his stay, he was eating close to 100% of the food that his family brought him. Greater than 30 minutes of time was spent coordinating discharge. TD: 10/01/2018 22:39 NIKOLAS
== END 2018-10-01 12:52 | disposition home or self-care (01) | DRG 872 ==
LOC: ED 11:29 → MS3 18:21
PROVIDERS: ADMIT Specialist; ATTEND Specialist
DX: K65.9 Peritonitis, unspecified (principal); I80.02 Phlebitis and thrombophlebitis of superficial vessels of left lower extremity; R78.81 Bacteremia; R18.0 Malignant ascites; C25.9 Malignant neoplasm of pancreas, unspecified; I48.91 Unspecified atrial fibrillation; I85.01 Esophageal varices with bleeding; I85.00 Esophageal varices without bleeding; K76.6 Portal hypertension; C78.6 Secondary malignant neoplasm of retroperitoneum and peritoneum; B96.20 Unspecified Escherichia coli [E. coli] as the cause of diseases classified elsewhere; I86.4 Gastric varices; D64.81 Anemia due to antineoplastic chemotherapy; I48.2 Chronic atrial fibrillation; D50.9 Iron deficiency anemia, unspecified; R05 Cough; M79.662 Pain in left lower leg; R93.2 Abnormal findings on diagnostic imaging of liver and biliary tract; T45.1X5D Adverse effect of antineoplastic and immunosuppressive drugs, subsequent encounter; Z86.19 Personal history of other infectious and parasitic diseases; Z79.899 Other long term (current) drug therapy
CPT/HCPCS: 36415; 36556; 49082; 71046; 74177; 80048; 80053; 81001; 81003; 83605; 83690; 85025; 85027; 87040; 87070; 87086; 87181; 87205; 87275; 87276; 89051; 96365; 96367; 99211; 99284

== ENCOUNTER 2018-10-05 13:33 | Outpatient (CLI) | payer MEDICARE, OTHER ==
--- NOTE | 2018-10-05 16:05 | Ultrasound Report ---
Reason: ASCITES, PANCREATIC CA Procedure Date: 10/05/2018 Accession Number: [id number] / [id number] Procedure: US - Abdominal Paracentesis CPT Code: FULL RESULT: EXAM: ULTRASOUND-GUIDED PARACENTESIS. EXAM DATE: 10/05/2018 03:12 PM. CLINICAL HISTORY: Ascites, pancreatic cancer. COMPARISON: Abdominal paracentesis 10/01/2017 12:22 PM. TECHNIQUE: Risks, benefits, and alternatives to the procedure were discussed with the patient. All questions answered. Written and verbal consent obtained. Patient was placed in the supine position and the skin overlying the ascites marked with sonographic guidance. The skin was sterilely prepped and draped, and 1% buffered lidocaine was used for local anesthesia. A- Ghsq-U-Epqdwzdh catheter needle combination was advanced into the peritoneal ascites and fluid aspirated. Upon completion, the catheter was removed. FINDINGS: A total of 5000 mL of fluid was removed without immediate complication. Patient tolerated procedure well. IMPRESSION: Ultrasound-guided paracentesis without immediate complications. RADIA
[2018-10-05] MEDS ORDERED: BUFFERED LIDOCAINE 10 ML SYRINGE IU ONE (16:41)
== END 2018-10-05 13:34 | disposition home or self-care (01) ==
LOC: DI 13:33
PROVIDERS: ATTEND Internal Medicine Hematology & Oncology
DX: C25.9 Malignant neoplasm of pancreas, unspecified (principal); R18.8 Other ascites
CPT/HCPCS: 49083

== ENCOUNTER 2018-10-13 10:49 | Outpatient (CLI) | payer MEDICARE, OTHER ==
[2018-10-13] MEDS ORDERED: BUFFERED LIDOCAINE 10 ML SYRINGE IU ONE (12:19)
--- NOTE | 2018-10-13 13:16 | Ultrasound Report ---
Reason: PANCREATIC CANCER Procedure Date: 10/13/2018 Accession Number: [id number] / [id number] Procedure: US - Abdominal Paracentesis CPT Code: FULL RESULT: EXAM: ULTRASOUND-GUIDED PARACENTESIS EXAM DATE: 10/13/2018 12:35 PM. CLINICAL HISTORY: PANCREATIC CANCER. COMPARISON: ABDOMINAL PARACENTESIS 10/05/2018 3:12 PM. TECHNIQUE: Risks, benefits, and alternatives to the procedure were discussed with the patient. All questions answered. Written and verbal consent obtained. Patient was placed in the supine position and the skin overlying the ascites marked with sonographic guidance over the right lower quadrant. The skin was sterilely prepped and draped, and 1% buffered lidocaine was used for local anesthesia. An 18-gauge [employer] catheter was advanced into the peritoneal ascites and fluid aspirated. Upon completion, the catheter was removed. FINDINGS: A total of 4400 mL of fluid was removed without immediate complication. Patient tolerated procedure well. IMPRESSION: Ultrasound-guided paracentesis without immediate complications. RADIA
== END 2018-10-13 10:50 | disposition home or self-care (01) ==
LOC: DI 10:49
PROVIDERS: ATTEND Internal Medicine Hematology & Oncology
DX: C25.9 Malignant neoplasm of pancreas, unspecified (principal)
CPT/HCPCS: 49083

== ENCOUNTER 2018-10-18 09:00 | Outpatient (CLI) | payer MEDICARE, OTHER ==
[2018-10-18 09:46] LABS: ALBUMIN 2.8 g/dL (3.2-5.5); ALKALINE PHOSPHATASE 174 IU/L (42-121); ALT ALANINE AMINOTRANSFERASE 10 IU/L (10-60); AST ASPARTATE AMINOTRANSFERASE 27 IU/L (10-42); BILIRUBIN,TOTAL 0.5 mg/dL (0.2-1.0); TOTAL PROTEIN 6.9 g/dL (6.7-8.2)
[2018-10-18 10:00] LABS: THYROID STIMULATING HORMONE 11.86 uIU/mL (0.34-5.60)
[2018-10-18 10:22] LABS: BILIRUBIN,DIRECT < 0.1 mg/dL (0.1-0.5)
[2018-10-18 10:49] LABS: T4 (THYROXINE) 8.34 ug/dL (6.09-12.23)
== END 2018-10-18 09:01 | disposition home or self-care (01) ==
LOC: LAB.R 09:00
PROVIDERS: ATTEND Internal Medicine Cardiovascular Disease
DX: R00.2 Palpitations (principal); I48.0 Paroxysmal atrial fibrillation; Z79.899 Other long term (current) drug therapy
CPT/HCPCS: 80076; 84436; 84443

== ENCOUNTER 2018-10-18 09:03 | Outpatient (CLI) | payer MEDICARE, OTHER | END 2018-10-18 09:04 | disposition home or self-care (01) | LOC: LAB 09:03 | PROVIDERS: ATTEND Family Medicine | DX: R78.81 Bacteremia (principal) | CPT/HCPCS: 36415; 87040 ==

== ENCOUNTER 2018-10-19 09:23 | Outpatient (CLI) | payer MEDICARE, OTHER ==
--- NOTE | 2018-10-19 11:35 | Ultrasound Report ---
Reason: ASCITES, PANCREATIC CA Procedure Date: 10/19/2018 Accession Number: [id number] / [id number] Procedure: US - Abdominal Paracentesis CPT Code: FULL RESULT: EXAM: ULTRASOUND-GUIDED PARACENTESIS EXAM DATE: 10/19/2018 09:50 AM. CLINICAL HISTORY: Ascites, pancreatic CA. COMPARISON: Abdominal paracentesis 10/13/2018 11:18 AM. TECHNIQUE: Risks, benefits, and alternatives to the procedure were discussed with the patient. All questions answered. Written and verbal consent obtained. Patient was placed in the supine position and the skin overlying the ascites marked with sonographic guidance. The skin was sterilely prepped and draped, and 1% buffered lidocaine was used for local anesthesia. A safety centesis catheter was advanced into the peritoneal ascites and fluid aspirated. Upon completion, the catheter was removed. FINDINGS: A total of 6000 mL of fluid was removed without immediate complication. Patient tolerated procedure well. IMPRESSION: Ultrasound-guided paracentesis without immediate complications. RADIA
[2018-10-19] MEDS ORDERED: BUFFERED LIDOCAINE 10 ML SYRINGE IU ONE (12:30)
== END 2018-10-19 09:24 | disposition home or self-care (01) ==
LOC: DI 09:23
PROVIDERS: ATTEND Internal Medicine Hematology & Oncology
DX: C25.9 Malignant neoplasm of pancreas, unspecified (principal)
CPT/HCPCS: 49083

== ENCOUNTER 2018-10-27 13:10 | Outpatient (CLI) | payer MEDICARE, OTHER ==
[~2018-10-27 13:10] MED LIST: SODIUM CHLORIDE 0.9% 0 ML IV ONE; SODIUM CHLORIDE FLUSH 0.9% 10 ML SYRINGE ONE
--- NOTE | 2018-10-27 15:41 | Ultrasound Report ---
Reason: PANCREATIC CA Procedure Date: 10/27/2018 Accession Number: [id number] / [id number] Procedure: US - Abdominal Paracentesis CPT Code: FULL RESULT: EXAM: ULTRASOUND-GUIDED PARACENTESIS EXAM DATE: 10/27/2018 12:24 PM. CLINICAL HISTORY: Pancreatic carcinoma. COMPARISON: Abdominal paracentesis 10/19/2018 9:49 AM. TECHNIQUE: Risks, benefits, and alternatives to the procedure were discussed with the patient. All questions answered. Written and verbal consent obtained. Patient was placed in the supine position and the skin overlying the ascites marked with sonographic guidance. The skin was sterilely prepped and draped, and 1% buffered lidocaine was used for local anesthesia. A 17-gauge [employer] catheter-needle combination was advanced into the peritoneal ascites and fluid aspirated. Upon completion, the catheter was removed. FINDINGS: A total of 6200 mL of fluid was removed without immediate complication. Patient tolerated procedure well. IMPRESSION: Ultrasound-guided paracentesis without immediate complications. RADIA
[2018-10-27] MEDS ORDERED: BUFFERED LIDOCAINE 10 ML SYRINGE IU ONE (17:47)
== END 2018-10-27 13:11 | disposition home or self-care (01) ==
LOC: DI 13:10
PROVIDERS: ATTEND Internal Medicine Hematology & Oncology
DX: C25.9 Malignant neoplasm of pancreas, unspecified (principal)
CPT/HCPCS: 49083

== ENCOUNTER 2018-11-02 09:07 | Outpatient (CLI) | payer MEDICARE, OTHER ==
[2018-11-02] MEDS ORDERED: SODIUM CHLORIDE FLUSH 0.9% 10 ML SYRINGE ONE (10:52)
[2018-11-02] MEDS ORDERED: BUPIVACAINE 0.5%-EPI 1:200000 PF 10 ML VIAL SUBQ ONE (11:08)
[2018-11-02] MEDS ORDERED: BUFFERED LIDOCAINE 10 ML SYRINGE IU ONE (11:08)
--- NOTE | 2018-11-02 11:26 | Ultrasound Report ---
Reason: ASCITES, PANCREATIC CA Procedure Date: 11/02/2018 Accession Number: [id number] / [id number] Procedure: US - Abdominal Paracentesis CPT Code: FULL RESULT: EXAM: ULTRASOUND-GUIDED PARACENTESIS EXAM DATE: 11/02/2018 10:50 AM. CLINICAL HISTORY: Ascites, pancreatic CA. COMPARISON: None. TECHNIQUE: Risks, benefits, and alternatives to the procedure were discussed with the patient. All questions answered. Written and verbal consent obtained. Patient was placed in the supine position and the skin overlying the ascites marked with sonographic guidance. The skin was sterilely prepped and draped, and 1% buffered lidocaine was used for local anesthesia. An 17-gauge paracentesis catheter needle combination, a safety centesis type was advanced into the peritoneal ascites and fluid aspirated. Upon completion, the catheter was removed. FINDINGS: A total of 8200 mL of fluid was removed without immediate complication. Patient tolerated procedure well. IMPRESSION: Ultrasound-guided paracentesis without immediate complications. I personally walked over to the oncology infusion center and arranged for evaluation for albumin infusion for this patient who has an appointment for chemotherapy immediately following the paracentesis. RADIA
[2018-11-02] MEDS ORDERED: MEPERIDINE 50 MG/ML VIAL ONE (16:40)
== END 2018-11-02 09:08 | disposition home or self-care (01) ==
LOC: DI 09:07
PROVIDERS: ATTEND Internal Medicine Hematology & Oncology
DX: R18.8 Other ascites (principal)
CPT/HCPCS: 49083

== ENCOUNTER 2018-11-10 10:38 | Outpatient (CLI) | payer MEDICARE, OTHER ==
[2018-11-10] MEDS: BUFFERED LIDOCAINE 10 ML SYRINGE IU ONE ×2 (13:30→13:33)
--- NOTE | 2018-11-10 14:16 | Ultrasound Report ---
Reason: ASCITES, PANCREATIC CA Procedure Date: 11/10/2018 Accession Number: [id number] / [id number] Procedure: US - Abdominal Paracentesis CPT Code: FULL RESULT: EXAM: ULTRASOUND-GUIDED PARACENTESIS EXAM DATE: 11/10/2018 01:03 PM. CLINICAL HISTORY: ASCITES, PANCREATIC CA. COMPARISON: ABDOMINAL PARACENTESIS 10/27/2018 12:24 PM. TECHNIQUE: Risks, benefits, and alternatives to the procedure were discussed with the patient. All questions answered. Written and verbal consent obtained. Patient was placed in the supine position and the skin overlying the ascites marked with sonographic guidance. The skin was sterilely prepped and draped, and 1% buffered lidocaine was used for local anesthesia. An 17-gauge safety centesis needle catheter combination was advanced into the peritoneal ascites and fluid aspirated. Upon completion, the catheter was removed. FINDINGS: A total of 7500 mL of fluid was removed without immediate complication. Patient tolerated procedure well. IMPRESSION: Ultrasound-guided paracentesis without immediate complications. Please note that the fluid has developed loculations in the interval and is beginning to appear more turbid/hemorrhagic. RADIA The above findings of interval development of loculations were discussed with Mari Red by Dr. Florian Thacker at 14:10 hrs on 11/10/18.
[2018-11-10 15:26] LABS: CC,BF RBC 35734 /mm^3
[2018-11-10 15:40] LABS: BF COLOR RED; BF SOURCE PERITONEAL
[2018-11-10 16:02] LABS: MESOTHELIAL %, BF 0 %
== END 2018-11-10 10:39 | disposition home or self-care (01) ==
LOC: DI 10:38
PROVIDERS: ATTEND Internal Medicine Hematology & Oncology
DX: C25.9 Malignant neoplasm of pancreas, unspecified (principal); R18.8 Other ascites
CPT/HCPCS: 49083; 81599; 87070; 87205; 89051

== ENCOUNTER 2018-11-16 08:39 | Outpatient (CLI) | payer MEDICARE, OTHER ==
[2018-11-16] MEDS ORDERED: LIDOCAINE 1% 10 ML MDV ONE (09:11)
[2018-11-16] MEDS ORDERED: IOVERSOL 320 100 ML VIAL IVP ONE ×2 (15:26→15:53)
--- NOTE | 2018-11-16 16:34 | Ultrasound Report ---
Reason: ASCITES, PANCREATIC CA Procedure Date: 11/16/2018 Accession Number: [id number] / [id number] Procedure: US - Abdominal Paracentesis CPT Code: FULL RESULT: EXAM: ULTRASOUND-GUIDED PARACENTESIS EXAM DATE: 11/16/2018 09:19 AM. CLINICAL HISTORY: Ascites, pancreatic CA. COMPARISON: Abdominal paracentesis 11/10/2018 10:54 AM. TECHNIQUE: Risks, benefits, and alternatives to the procedure were discussed with the patient. All questions answered. Written and verbal consent obtained. Patient was placed in the supine position and the skin overlying the ascites marked with sonographic guidance. The skin was sterilely prepped and draped, and 1% buffered lidocaine was used for local anesthesia. An 18-gauge Angiocath was advanced into the peritoneal ascites and fluid aspirated. Upon completion, the catheter was removed. FINDINGS: A total of 2900 mL of fluid was removed without immediate complication. Patient tolerated procedure well. IMPRESSION: Ultrasound-guided paracentesis without immediate complications. RADIA
--- NOTE | 2018-11-16 16:37 | CT Report ---
Reason: SHORTNESS OF BREATH Procedure Date: 11/16/2018 Accession Number: [id number] / [id number] Procedure: CT - Chest Angio (PE) CPT Code: FULL RESULT: EXAM: CT ANGIOGRAM CHEST EXAM DATE: 11/16/2018. CLINICAL HISTORY: Shortness of breath. COMPARISON: Chest CT on 04/13/2018. Abdomen and pelvis CT on 09/29/2018.. TECHNIQUE: Routine helical imaging was performed through the chest in the pulmonary arterial phase. IV Contrast: OPTIRAY 320 80mL. Reconstructions: Coronal 3-D MIP reconstructions.Sagittal and coronal reformatted images and 3D MIP reconstructions. In accordance with CT protocol optimization, one or more of the following dose reduction techniques were utilized for this exam: automated exposure control, adjustment of mA and/or KV based on patient size, or use of iterative reconstructive technique. FINDINGS: Pulmonary Arteries: Well opacified. No filling defects. Lungs/Pleura: Small bilateral pleural effusions, larger on the right, the right slightly larger than on the recent abdomen and pelvis CT. Small left pleural effusion not demonstrated. Increased right lower lung consolidation and mild left lower lung consolidation adjacent to the pleural fluid. Punctate superior segment right lower lobe calcified granuloma. Minimal linear opacity adjacent to the minor fissure in the right middle lobe, and irregular linear opacities in the lingula, consistent with small regions of atelectasis or scarring, not present on the prior chest CT. Mediastinum: No adenopathy. No pericardial effusion. The Port-A-Cath in place, distal end of the catheter near the cavoatrial junction. Thoracic Aorta: No aneurysm or dissection demonstrated. Upper Abdomen: Moderate volume of ascites, increased since prior examination. Pneumobilia again demonstrated. Calcified gastric and esophageal varices again demonstrated. Splenomegaly is unchanged. Bones: Mild degenerative changes of the spine. IMPRESSION: No pulmonary emboli demonstrated. Small to moderate right and small left pleural effusion, larger than on abdomen and pelvis CT done 09/02/2018. Increasing lower lung atelectasis and/or pneumonia. Increased volume of ascites in the upper abdomen. Pneumobilia and calcified gastric and esophageal varices are unchanged from the prior abdomen and pelvis CT. Other findings as described in the report. Note: A preliminary report was called to , covering for Dr. Red, at 1630 on 11/16/2018. RADIA
== END 2018-11-16 08:40 | disposition home or self-care (01) ==
LOC: DI 08:39
PROVIDERS: ATTEND Internal Medicine Hematology & Oncology
DX: C25.9 Malignant neoplasm of pancreas, unspecified (principal); R18.8 Other ascites; J90 Pleural effusion, not elsewhere classified; I86.4 Gastric varices; I85.00 Esophageal varices without bleeding
CPT/HCPCS: 49083; 71275

== ENCOUNTER 2018-11-29 12:34 | Outpatient (CLI) | payer MEDICARE, OTHER ==
[~2018-11-29 12:34] MED LIST changes: +BUFFERED LIDOCAINE 10 ML SYRINGE ONE; -SODIUM CHLORIDE 0.9% 0 ML IV ONE; -SODIUM CHLORIDE FLUSH 0.9% 10 ML SYRINGE ONE
--- NOTE | 2018-11-29 15:52 | Ultrasound Report ---
Reason: ASCITES Procedure Date: 11/29/2018 Accession Number: [id number] / [id number] Procedure: US - Abdomen Limited CPT Code: FULL RESULT: EXAM: ABDOMEN ULTRASOUND LIMITED EXAM DATE: 11/29/2018 12:49 PM. CLINICAL HISTORY: Ascites. COMPARISON: None. TECHNIQUE: Real-time scanning was performed with static images obtained. FINDINGS: A small amount of highly loculated ascites is seen in all quadrants. Quantity and loculations are not amenable to drainage at this time. IMPRESSION: Loculated pleural effusion as described. RADIA
== END 2018-11-29 12:35 | disposition home or self-care (01) ==
LOC: DI 12:34
PROVIDERS: ATTEND Internal Medicine Hematology & Oncology
DX: C25.9 Malignant neoplasm of pancreas, unspecified (principal); R18.8 Other ascites
CPT/HCPCS: 76705

== ENCOUNTER 2018-12-17 16:55 | Outpatient (CLI) | payer MEDICARE, OTHER | END 2018-12-17 16:56 | disposition critical access hospital (66) | LOC: EMS 16:55 | PROVIDERS: ATTEND Surgery | DX: R11.2 Nausea with vomiting, unspecified (principal); R06.02 Shortness of breath | CPT/HCPCS: A0425; A0429 ==

== ENCOUNTER 2018-12-17 17:04 | Emergency (ER) | payer MEDICARE, OTHER ==
--- NOTE | 2018-12-17 18:37 | ED Physician Documentation ---
History of Present Illness - Stated complaint Stated Complaint: SOA - Chief complaint Chief Complaint: General - History obtained from History obtained from: Patient, Family - Additonal information Additional information: 68-year-old male with Pancreatic cancer who started a new chemotherapy and has been having increased weakness and shortness of breath over the past several days. The patient's had increased generalized swelling throughout his body up through his chest. Today the patient was much more weak and short of breath. The patient was having a wet productive cough with blood mixed into the sputum. The paired patient's family thinks this may be from an nosebleed earlier. The patient is denying chest pain or fevers headache or neck pain. Symptoms are described as severe. No relieving factors. Review of Systems Constitutional: reports: Chills, Fatigue. denies: Fever Eyes: denies: Discharge Ears: denies: Ear pain Nose: denies: Congestion Throat: denies: Sore throat Cardiac: denies: Chest pain / pressure Respiratory: reports: Dyspnea, Cough GI: denies: Abdominal Pain : denies: Dysuria, Hematuria Musculoskeletal: denies: Neck pain Neurologic: reports: Generalized weakness. denies: Altered mental status Immunocompromised: reports: Chemotherapy PD PAST MEDICAL HISTORY - Past Medical History Cardiovascular: Atrial fibrillation Respiratory: None Neuro: None Endocrine/Autoimmune: None GI: None, Other : None HEENT: None Psych: None Musculoskeletal: None Derm: None - Past Surgical History Past Surgical History: Yes General: Other Cardiovascular: Other HEENT: Tonsil/Adenoidectomy - Present Medications Home Medications: Ambulatory Orders Medication Instructions Recorded Confirmed Abdominal Pad 7.5 bandage TOP BID #60 10/01/18 12/14/18 Fluconazole 2 tab ORAL DAILY 12/17/18 12/17/18 Gabapentin 1 tab ORAL DAILY 12/17/18 12/17/18 Levofloxacin [Levaquin] 1 tab ORAL DAILY 12/17/18 12/17/18 Metoclopramide [Reglan] 1 tab ORAL Q6HR 12/17/18 12/17/18 Senna [Senokot] 25 mg ORAL TID 12/17/18 12/17/18 Vancomycin HCl [Firvanq] 5 ml ORAL BID 12/17/18 12/17/18 - Allergies Allergies/Adverse Reactions: Allergies Allergy/AdvReac Type Severity Reaction Status Date / Time No Known Drug Allergies Allergy Verified 01/18/19 17:30 - Social History Does the pt smoke?: No Smoking Status: Never smoker Does the pt drink ETOH?: Yes Does the pt have substance abuse?: No - Immunizations Immunizations are current?: Yes - POLST Patient has POLST: No PD ED PE NORMAL - HEENT HEENT: Atraumatic, PERRL, EOMI, Ears normal - Cardiac Cardiac: RRR, Strong equal pulses - Respiratory Respiratory: No respiratory distress - Abdomen Abdomen: Soft, Other (There is a indwelling catheter in his abdomen for paracentesis) - Derm Derm: Normal color - Extremities Extremities: No deformity. No: No edema (The patient has anasarca up to the chest) - Neuro Neuro: Alert and oriented X 3, No motor deficit, Normal speech - Psych Psych: Normal mood PD ED PE EXPANDED - General General: Anxious, In distress, Other (Acutely ill) Results - Vitals Vitals: Vital Signs - 24 hr 12/17/18 12/17/18 12/17/18 17:22 17:31 19:15 Temperature 35.4 C L Heart Rate 60 60 80 Respiratory 22 20 22 Rate Blood Pressure 79/55 L 104/73 108/70 O2 Saturation 89 L 97 96 12/17/18 12/17/18 12/17/18 20:16 20:31 20:47 Temperature Heart Rate 79 84 61 Respiratory 24 24 Rate Blood Pressure 112/75 150/71 H O2 Saturation 93 12/17/18 12/17/18 12/17/18 22:32 23:00 23:15 Temperature Heart Rate 63 55 L 55 L Respiratory 16 16 Rate Blood Pressure 120/97 H 64/46 L 87/56 L O2 Saturation 12/17/18 12/17/18 12/17/18 23:18 23:23 23:28 Temperature 36.6 C Heart Rate 55 L 56 L 56 L Respiratory 16 16 16 Rate Blood Pressure 93/59 L 96/61 111/61 O2 Saturation 79 L 81 L Oxygen O2 Source Mechanical ventilator - Labs Labs: Laboratory Tests 12/17/18 12/17/18 12/17/18 18:25 18:25 18:25 WBC 10.7 RBC 3.36 L Hgb 9.6 L Hct 30.7 L MCV 91.4 MCH 28.7 MCHC 31.4 L RDW 28.0 H Plt Count 19 L* MPV 10.5 Neut # (Auto) Not Reportable Lymph # (Auto) Not Reportable [place] # (Auto) Not Reportable Eos # (Auto) Not Reportable Baso # (Auto) Not Reportable Absolute Nucleated RBC Not Reportable Total Counted 100 Band Neuts % (Manual) 8 Abnorm Lymph % (Manual) 0 Nucleated RBC % Not Reportable Neutrophils # (Manual) 10.3 H Lymphocytes # (Manual) 0.0 L Monocytes # (Manual) 0.4 Eosinophils # (Manual) 0.0 Basophils # (Manual) 0.0 Differential Comment MANUAL DIFFERENTIAL Platelet Estimate DECREASED (<130,000) Platelet Morphology RARE GIANT PLATELETS RBC Morph Micro Appear 3+ POIKILOCYTOSIS PT 15.8 H INR 1.4 H APTT 50.7 H Bld Gas Analysis Time Sample Site ABG pH ABG pCO2 ABG pO2 ABG HCO3 ABG Total CO2 ABG O2 Saturation ABG Base Excess Jonas Test O2 Delivery Device O2 Liters/Min FiO2 Sodium 137 Potassium 4.2 Chloride 107 Carbon Dioxide 19 L Anion Gap 11.0 BUN 54 H Creatinine 1.5 H Estimated GFR (MDRD) 46 L Glucose 150 H Lactic Acid Calcium 9.3 Total Bilirubin 1.1 H AST 59 H ALT 14 Alkaline Phosphatase 160 H Troponin I B-Natriuretic Peptide Total Protein 5.1 L Albumin 1.9 L Globulin 3.2 Albumin/Globulin Ratio 0.6 L Lipase 56 H 12/17/18 12/17/18 12/17/18 18:25 18:25 18:25 WBC RBC Hgb Hct MCV MCH MCHC RDW Plt Count MPV Neut # (Auto) Lymph # (Auto) [place] # (Auto) Eos # (Auto) Baso # (Auto) Absolute Nucleated RBC Total Counted Band Neuts % (Manual) Abnorm Lymph % (Manual) Nucleated RBC % Neutrophils # (Manual) Lymphocytes # (Manual) Monocytes # (Manual) Eosinophils # (Manual) Basophils # (Manual) Differential Comment Platelet Estimate Platelet Morphology RBC Morph Micro Appear PT INR APTT Bld Gas Analysis Time Sample Site ABG pH ABG pCO2 ABG pO2 ABG HCO3 ABG Total CO2 ABG O2 Saturation ABG Base Excess Jonas Test O2 Delivery Device O2 Liters/Min FiO2 Sodium Potassium Chloride Carbon Dioxide Anion Gap BUN Creatinine Estimated GFR (MDRD) Glucose Lactic Acid 7.1 H* Calcium Total Bilirubin AST ALT Alkaline Phosphatase Troponin I < 0.04 B-Natriuretic Peptide 227 H Total Protein Albumin Globulin Albumin/Globulin Ratio Lipase 12/17/18 18:36 WBC RBC Hgb Hct MCV MCH MCHC RDW Plt Count MPV Neut # (Auto) Lymph # (Auto) [place] # (Auto) Eos # (Auto) Baso # (Auto) Absolute Nucleated RBC Total Counted Band Neuts % (Manual) Abnorm Lymph % (Manual) Nucleated RBC % Neutrophils # (Manual) Lymphocytes # (Manual) Monocytes # (Manual) Eosinophils # (Manual) Basophils # (Manual) Differential Comment Platelet Estimate Platelet Morphology RBC Morph Micro Appear PT INR APTT Bld Gas Analysis Time 1842 Sample Site RIGHT BRACHIAL ABG pH 7.31 L ABG pCO2 34 ABG pO2 72 L ABG HCO3 16.6 L ABG Total CO2 17.6 L ABG O2 Saturation 89 L ABG Base Excess -8.7 L Jonas Test NOT APPLICABLE O2 Delivery Device NON REBREATHER MASK O2 Liters/Min 15.00 FiO2 100.00 Sodium Potassium Chloride Carbon Dioxide Anion Gap BUN Creatinine Estimated GFR (MDRD) Glucose Lactic Acid Calcium Total Bilirubin AST ALT Alkaline Phosphatase Troponin I B-Natriuretic Peptide Total Protein Albumin Globulin Albumin/Globulin Ratio Lipase - Rads (name of study) CXR Radiology: Final report received, See rad report (1. Interval increase in bilateral symmetric basilar airspace disease. Differential diagnosis including alveolar pulmonary edema, aspiration, or bibasilar pneumonia. ) Procedures - Intubation Provider: Emergency physician Medications: Etomidate, Succinylcholine Blade: Glidescope Tube: Size-enter number (7.5 cm), Cuffed Confirmation: Direct visualization, Bilateral breath sounds, End tidal CO2, Pulse ox, Chest xray Complications: No compications PD MEDICAL DECISION MAKING - ED course ED course: The patient continued to decline in the emergency department and required more oxygen and his work of breathing progressed. The patient was started on BiPAP in the hospitalist at our facility was consulted for admission to the hospital. After the hospitalist evaluated the patient he felt that he would be better served for transfer to a higher level of care. Since, the patient was recently at [facility] the patient will return back to their facility for ongoing management. The case was discussed with the thread milling machine set up operator Dr. Faulkner Who agrees with the plan for transfer. The patient continued to have increased respiratory rate and a significant work of breathing so intubation was performed. Prior to this procedure I discussed this with the patient's family. After reviewing the patient's chart it appears that he is gravely ill with significant cancer that is inoperable. I discussed This with the patient and his family, they have expressed that they want everything done. They understand that there is a strong possibility that the patient may never come off the ventilator but want to attempt this resuscitation. The intubation of the patient was on eventful and the patient initially tolerated well, propofol was started for sedation. The patient then began to become hypotensive most likely secondary to the propofol and positive pressure. The propofol was stopped and a IV bolus of fluids were started. The patient did not respond significantly so Levophed was started and was titrated up to 20 mcg/min and the patient's map was over 65. The patient has been difficult to oxygenate most likely secondary to the significant lung disease. - Critical Care Time(min): 35 Time Includes: Direct patient care, Review records, Reassess patient, Document care, Coordinate care, Family consult for tx dec Data interpretation: Labs, Pulse ox, ABG, CXR Procedures excluded from critical care time: Intubation Departure - Departure Disposition: 02 Transfer Acute Care Hosp Clinical Impression: Anasarca, Acute kidney injury, Weakness, Thrombocytopenia Respiratory failure Qualifiers: Chronicity: acute Respiratory failure complication: unspecified whether with hypoxia or hypercapnia Qualified Code(s): J96.00 - Acute respiratory failure, unspecified whether with hypoxia or hypercapnia Pancreatic cancer Qualifiers: Pancreatic malignancy location: unspecified Qualified Code(s): C25.9 - Malignant neoplasm of pancreas, unspecified Pulmonary edema Qualifiers: Chronicity: acute Qualified Code(s): J81.0 - Acute pulmonary edema Pneumonia Qualifiers: Pneumonia type: due to unspecified organism Laterality: unspecified laterality Lung location: unspecified part of lung Qualified Code(s): J18.9 - Pneumonia, unspecified organism Condition: Critical
[2018-12-17 18:40] LABS: BASOPHILS % (AUTO) 0.2 %; EOSINOPHILS % (AUTO) 0.1 %; HGB - HEMOGLOBIN 9.6 g/dL (14.0-18.0); LYMPHOCYTES % (AUTO) 1.2 %; MEAN CORPUSCULAR HEMOGLOBIN 28.7 pg (27.0-31.0); MEAN CORPUSCULAR HGB CONC 31.4 g/dL (32.0-36.0); MEAN CORPUSCULAR VOLUME 91.4 fL (80.0-94.0); MEAN PLATELET VOLUME 10.5 fL (7.4-11.4); MONOCYTES % (AUTO) 0.5 %; RED BLOOD COUNT 3.36 10^6/uL (4.70-6.10); WHITE BLOOD COUNT 10.7 x10^3/uL (4.8-10.8)
[2018-12-17 18:45] LABS: INR 1.4 (0.8-1.2); PT - PROTHROMBIN TIME 15.8 secs (9.9-12.6)
[2018-12-17 18:52] LABS: ABNORMAL LYMPHS % (MANUAL) 0 %; LYMPHOCYTES % (MANUAL) 0 %
[2018-12-17 18:57] LABS: ALBUMIN 1.9 g/dL (3.2-5.5); ALBUMIN/GLOBULIN RATIO 0.6 (1.0-2.2); BILIRUBIN,TOTAL 1.1 mg/dL (0.2-1.0); CALCIUM 9.3 mg/dL (8.5-10.3); CREATININE 1.5 mg/dL (0.6-1.2); TOTAL PROTEIN 5.1 g/dL (6.7-8.2)
[2018-12-17 19:05] LABS: ABG BASE EXCESS -8.7 mmol/L (-2.0-3.0); ABG HCO3 16.6 mmol/L (22.0-26.0); ABG OXYGEN SATURATION 89 % (94-98); ABG PCO2 34 mmHg (34-45); ABG PH 7.31 (7.35-7.45); ABG PO2 72 mmHg (80-100); ABG TCO2 17.6 MMOL/L (21.0-29.0)
--- NOTE | 2018-12-17 19:06 | XRAY Report ---
Reason: soa Procedure Date: 12/17/2018 Accession Number: [id number] / [id number] Procedure: XR - Chest 1 View X-Ray CPT Code: 82909 FULL RESULT: EXAM: CHEST RADIOGRAPHY EXAM DATE: 12/17/2018 06:43 PM. CLINICAL HISTORY: Soa. COMPARISON: CHEST 2 VIEW 09/28/2018 1:56 PM. TECHNIQUE: 1 view. FINDINGS: Lungs/Pleura: There is increased bilateral lower lung zone pulmonary consolidation. There is no pneumothorax. There is mild blunting of the right and left costophrenic angles. Mediastinum: Cardiac silhouette is obscured. There is a left-sided Port-A-Cath with tip at cavoatrial junction. Other: None. IMPRESSION: 1. Interval increase in bilateral symmetric basilar airspace disease. Differential diagnosis including alveolar pulmonary edema, aspiration, or bibasilar pneumonia. RADIA
[2018-12-17 19:20] LABS: BAND NEUTROPHILS % (MANUAL) 8 %; MONOCYTES # (MANUAL) 0.4 10^3/uL (0.0-1.0); NEUTROPHILS # (MANUAL) 10.3 10^3/uL (1.5-6.6); NEUTROPHILS % (MANUAL) 88 %
[2018-12-17 19:21] LABS: DIFFERENTIAL COMMENT MANUAL DIFFERENTIAL; PLATELET ESTIMATE, MANUAL DECREASED (<130,000) (NORMAL); PLATELET MORPHOLOGY RARE GIANT PLATELETS (NORMAL)
[2018-12-17 19:23] LABS: PLT - PLATELET COUNT 19 10^3/uL (130-450)
[2018-12-17] MEDS ORDERED: CEFEPIME 2 GM in SODIUM CHLORIDE 0.9% MINIBAG 100 ML IV STA (19:42)
[2018-12-17] MEDS ORDERED: FUROSEMIDE 40 MG/4 ML VIAL IVP STA (20:17)
[2018-12-17] MEDS ORDERED: ETOMIDATE 40 MG/20 ML VIAL IVP ONE (22:09)
[2018-12-17] MEDS ORDERED: SUCCINYLCHOLINE 200 MG/10 ML VIAL ONE (22:10)
[2018-12-17] MEDS ORDERED: PROPOFOL 1000 MG/100 ML 100 ML IV ONE (22:20)
[2018-12-17] MEDS ORDERED: PROPOFOL 1000 MG/100 ML 100 ML IV STA (22:27)
[2018-12-17] MEDS ORDERED: ETOMIDATE 40 MG/20 ML VIAL IVP STA (22:28)
[2018-12-17] MEDS ORDERED: SUCCINYLCHOLINE 200 MG/10 ML VIAL IVP STA (22:29)
--- NOTE | 2018-12-17 23:20 | XRAY Report ---
Reason: post intubation Procedure Date: 12/17/2018 Accession Number: [id number] / [id number] Procedure: XR - Chest 1 View X-Ray CPT Code: 21257 FULL RESULT: EXAM: CHEST RADIOGRAPHY EXAM DATE: 12/17/2018 10:23 PM. CLINICAL HISTORY: Post intubation. COMPARISON: CHEST 1 VIEW 12/17/2018 6:31 PM. TECHNIQUE: 1 view. FINDINGS IMPRESSION: 1. Tip of endotracheal tube in satisfactory position 4.8 cm above the ermelinda. 2. Diffuse airspace opacities most likely secondary to edema versus multilobar pneumonia, unchanged. 3. Moderate bilateral pleural effusions. RADIA
[2018-12-17 23:48] VITALS: BP 112/65
== END 2018-12-18 | disposition short-term general hospital (02) ==
LOC: EDUNIT# → ED 17:04
DX: N17.9 Acute kidney failure, unspecified (principal); R53.1 Weakness; D69.6 Thrombocytopenia, unspecified; J96.00 Acute respiratory failure, unspecified whether with hypoxia or hypercapnia; C25.9 Malignant neoplasm of pancreas, unspecified; J81.0 Acute pulmonary edema; J18.9 Pneumonia, unspecified organism; I44.0 Atrioventricular block, first degree; Z92.21 Personal history of antineoplastic chemotherapy
CPT/HCPCS: 31500; 36415; 36600; 71045; 80053; 82803; 83605; 83690; 83880; 84484; 85025; 85610; 85730; 87040; 87181; 93005; 94770; 96365; 96367; 96375; 99291; J0330; 99285

== ENCOUNTER 2018-12-18 00:10 | Outpatient (CLI) | payer MEDICARE, OTHER | END 2018-12-18 00:11 | disposition short-term general hospital (02) | LOC: EMS 00:10 | PROVIDERS: ATTEND Surgery | DX: J96.90 Respiratory failure, unspecified, unspecified whether with hypoxia or hypercapnia (principal) | CPT/HCPCS: A0425; A0433 ==